=== PATIENT | female | born 1935 | race Caucasian/White ===

== ENCOUNTER → 2016-06-28 | Outpatient (CLI) | payer OTHER ==
[~2016-06-28] MED LIST: AMLO-114 PO; ATEN-173 PO; CALCTAB5 PO; DOXY100C76 PO; HYDR-5688 PO; INDA1TAB3 PO; LOPE2TAB84 PO; LOPELIQ6 PO; LOSA1TAB38 PO; MECL1TAB40 PO; MOME50SP5; TRIA1SPR4
[2016-06-28 17:52] LABS: BASO % 0.6 %; BASO ABS # 0.03 K/uL (0-0.2); COMPLETE YES; EOS % 2.3 %; HEMATOCRIT 36.7 % (37-47); IG% 0.2 %; LYMPH ABS # 1.66 K/uL (1.2-3.4); MEAN CELL VOLUME 90.4 fL (80-100); MEAN CORPUSCULAR HEMOGLOBIN 29.6 pg (25-34); MEAN CORPUSCULAR HGB CONC 32.7 g/dl (32-36); MEAN PLATELET VOLUME 10.7 fL (7.4-10.4); MONO % 8.4 %; NEUT % 53.5 %; PLATELET COUNT 184 K/uL (130-400); RED BLOOD COUNT 4.06 M/uL (4.2-5.4); WHITE BLOOD COUNT 4.74 K/uL (4.8-10.8)
[2016-06-28 18:26] LABS: ALT/SGPT 29 U/L (12-78); AST/SGOT 21 U/L (15-37); BLOOD UREA NITROGEN 19 mg/dl (7-18); BUN/CREATININE RATIO 28.8 (10-20); CALCIUM 8.9 mg/dl (8.5-10.1); CARBON DIOXIDE 31 mmol/L (21-32); CHLORIDE 103 mmol/L (98-107); CREATININE 0.67 mg/dl (0.60-1.20); GLUCOSE 108 mg/dl (70-99); POTASSIUM 3.2 mmol/L (3.5-5.1); SODIUM 143 mmol/L (136-145)
[2016-06-28 18:37] LABS: ALB/GLOB RATIO 1.2 (0.9-2); ALKALINE PHOSPHATASE 53 U/L (45-117); CHOLESTEROL 195 mg/dl (0-200); CHOLESTEROL/HDL RATIO 3.6; HDL CHOLESTEROL 54 mg/dl; LDL CHOLESTEROL CALCULATED 92 mg/dl; THYROID STIMULATING HORMONE 0.756 uIu/ml (0.300-4.500); TRIGLYCERIDES 247 mg/dl (0-150); VERY LOW DENSITY LIPOPROT CALC 49 mg/dl
== END | disposition home or self-care (01) ==
LOC: C.LAB 16:14
PROVIDERS: ATTEND Internal Medicine Geriatric Medicine
DX: I10 Essential (primary) hypertension (principal); M19.90 Unspecified osteoarthritis, unspecified site; E78.5 Hyperlipidemia, unspecified; E04.2 Nontoxic multinodular goiter; E87.6 Hypokalemia; M81.0 Age-related osteoporosis without current pathological fracture

== ENCOUNTER → 2016-07-24 | Outpatient (CLI) | payer OTHER ==
[2016-07-24 13:22] LABS: BLOOD UREA NITROGEN 18 mg/dl (7-18); CALCIUM 9.2 mg/dl (8.5-10.1); CARBON DIOXIDE 26 mmol/L (21-32); CHLORIDE 107 mmol/L (98-107); CREATININE 0.75 mg/dl (0.60-1.20); GLUCOSE 104 mg/dl (70-99); SODIUM 143 mmol/L (136-145)
== END | disposition home or self-care (01) ==
LOC: C.LABPBG 11:00
PROVIDERS: ATTEND Internal Medicine Geriatric Medicine
DX: E87.6 Hypokalemia (principal)

== ENCOUNTER → 2016-09-12 | Outpatient (CLI) | payer OTHER ==
[2016-09-12 17:53] LABS: BLOOD UREA NITROGEN 23 mg/dl (7-18); BUN/CREATININE RATIO 30.4 (10-20); CALCIUM 9.1 mg/dl (8.5-10.1); CARBON DIOXIDE 31 mmol/L (21-32); CHLORIDE 107 mmol/L (98-107); CREATININE 0.76 mg/dl (0.60-1.20); GLUCOSE 103 mg/dl (70-99); POTASSIUM 3.4 mmol/L (3.5-5.1); SODIUM 144 mmol/L (136-145)
== END | disposition home or self-care (01) ==
LOC: C.LABPBG 11:16
PROVIDERS: ATTEND Internal Medicine Geriatric Medicine
DX: I10 Essential (primary) hypertension (principal)

== ENCOUNTER → 2016-10-04 | Outpatient (CLI) | payer OTHER ==
[2016-10-04 13:16] LABS: CALCIUM 9.4 mg/dl (8.5-10.1)
[2016-10-04 13:18] LABS: BLOOD UREA NITROGEN 16 mg/dl (7-18); BUN/CREATININE RATIO 20.3 (10-20); CARBON DIOXIDE 28 mmol/L (21-32); CHLORIDE 103 mmol/L (98-107); CREATININE 0.78 mg/dl (0.60-1.20); GLUCOSE 89 mg/dl (70-99); POTASSIUM 3.1 mmol/L (3.5-5.1); SODIUM 142 mmol/L (136-145)
== END | disposition home or self-care (01) ==
LOC: C.LABPBG 09:21
PROVIDERS: ATTEND Internal Medicine Geriatric Medicine
DX: E87.6 Hypokalemia (principal)

== ENCOUNTER → 2016-10-23 | Outpatient (CLI) | payer OTHER ==
[2016-10-23 17:45] LABS: BLOOD UREA NITROGEN 22 mg/dl (7-18); BUN/CREATININE RATIO 33.2 (10-20); CALCIUM 8.7 mg/dl (8.5-10.1); CARBON DIOXIDE 28 mmol/L (21-32); CHLORIDE 108 mmol/L (98-107); CREATININE 0.67 mg/dl (0.60-1.20); GLUCOSE 91 mg/dl (70-99); POTASSIUM 3.6 mmol/L (3.5-5.1); SODIUM 143 mmol/L (136-145)
== END | disposition home or self-care (01) ==
LOC: C.LABPBG 11:56
PROVIDERS: ATTEND Internal Medicine Geriatric Medicine
DX: E87.6 Hypokalemia (principal)

== ENCOUNTER → 2016-10-29 | Outpatient (CLI) | payer OTHER ==
[2016-10-29 17:35] LABS: URINE APPEARANCE CLEAR (CLEAR); URINE BILIRUBIN NEG (NEG); URINE COLOR YELLOW; URINE NITRITE NEG (NEG); URINE PH 6.5 (4.5-7.5); UROBILINOGEN NEG (NEG)
[2016-10-29 17:37] LABS: MANUAL MICROSCOPIC REQUIRED? NO; REVIEW REQ? NO
[2016-10-29 17:37] LABS: BLOOD UREA NITROGEN 16 mg/dl (7-18); BUN/CREATININE RATIO 22.6 (10-20); CALCIUM 8.9 mg/dl (8.5-10.1); CARBON DIOXIDE 31 mmol/L (21-32); CHLORIDE 107 mmol/L (98-107); CREATININE 0.72 mg/dl (0.60-1.20); GLUCOSE 99 mg/dl (70-99); PHOSPHORUS 2.9 mg/dl (2.5-4.9); POTASSIUM 3.3 mmol/L (3.5-5.1); SODIUM 144 mmol/L (136-145)
[2016-10-29 17:53] LABS: URINE TOTAL PROTEIN < 5.0 mg/dl (0-11.9)
== END | disposition home or self-care (01) ==
LOC: C.LABPBG 14:59
PROVIDERS: ATTEND Internal Medicine Nephrology
DX: I10 Essential (primary) hypertension (principal)

== ENCOUNTER → 2016-11-18 | Outpatient (CLI) | payer OTHER ==
--- NOTE | 2016-11-18 16:23 | DIAGNOSTIC IMAGING REPORT ---
ULTRASOUND RIGHT VENOUS DOPP LOWER EXT UNILAT CLINICAL HISTORY: Right leg edema COMPARISON STUDY: 05/29/2015 FINDINGS: Real-time and color flow Doppler imaging were performed. Flow was seen within the femoral, popliteal and calf veins with no intraluminal thrombus demonstrated. The saphenous vein is patent. IMPRESSION: No evidence of right lower extremity DVT Electronically signed by: Moisés Stinson M.D. 11/18/2016 4:21 PM Dictated Date/Time: 11/18/2016 4:21 PM
== END | disposition home or self-care (01) ==
LOC: C.ULTR 15:27
PROVIDERS: ATTEND Physician Assistant Medical
DX: R60.0 Localized edema (principal)

== ENCOUNTER 2016-11-28 17:57 | Emergency (ER) | payer OTHER ==
[~2016-11-28] VITALS: Ht 154.9 cm; Wt 67.0 kg
[~2016-11-28 17:57] MED LIST changes: -AMLO-114 PO; -HYDR-5688 PO; -LOPE2TAB84 PO; -LOSA1TAB38 PO; -TRIA1SPR4
[2016-11-28 18:00] VITALS: BP 198/89; PULSE 71; TEMP 36.7; O2SAT 96; Ht 154.9 cm; Wt 67.0 kg
[2016-11-28] MEDS ORDERED: AMLO-114 PO (18:29)
[2016-11-28] MEDS ORDERED: CALCTAB5 PO (18:29)
[2016-11-28] MEDS ORDERED: LOSA1TAB38 PO (18:29)
[2016-11-28] MEDS ORDERED: TRIA1SPR4 (18:29)
[2016-11-28] MEDS ORDERED: LOPE2TAB84 PO (18:30)
--- NOTE | 2016-11-28 18:50 | DIAGNOSTIC IMAGING REPORT ---
RIGHT WRIST 4 VIEWS CLINICAL HISTORY: Right wrist pain. No history of trauma. FINDINGS: 4 views of the right wrist are obtained. No prior studies are available for comparison at the time of dictation. The skeletal structures are osteopenic. No fracture is seen. There is advanced degenerative narrowing at the radiocarpal articulation with bony sclerosis and subchondral cyst formation seen within the distal radius. Advanced arthritic change is seen throughout the intercarpal joints as well as the carpometacarpal joints. This is greatest at the first carpometacarpal articulation where there is bony overgrowth and subluxation. Diffuse degenerative cystic change is seen throughout the wrist. There is collapse of the distal carpal row. Bony overgrowth is noted along the ulnar styloid. Chondrocalcinosis is present within the triangular fibrocartilage. Some tissue edema is present around the wrist. IMPRESSION: 1. Soft tissue swelling with no acute bony abnormality seen in the right wrist. 2. Osteopenia and advanced arthritic change as above. Electronically signed by: Abhinav Josue M.D. 11/28/2016 6:48 PM Dictated Date/Time: 11/28/2016 6:46 PM
--- NOTE | 2016-11-28 19:02 | EMERGENCY ROOM VISIT NOTE ---
ED Visit Note First contact with patient: 18:18 The patient was seen and examined with Wisam Jiang PA-C. I agree with the history, physical and findings. Please see the note for disposition and details.
[2016-11-28] MEDS ORDERED: HYDR-5688 PO (19:08)
[2016-11-28] MEDS ORDERED: HYDROCODONE/ACETAMOPHEN 5/325MG TAB PO ONE (19:30)
--- NOTE | 2016-11-29 14:28 | EMERGENCY ROOM VISIT NOTE ---
ED Visit Note First contact with patient: 18:18 Chief Complaint: Right wrist and hand pain. History of Present Illness: Ms. Abreu is a 81-year-old white female who ambulates into the ED accompanied by her complaining of right wrist and hand pain. Patient denies any recent direct trauma or previous significant injuries or surgeries. She does report she has moderate to severe arthritis. Patient reports her pain started yesterday after cleaning house. Her also reports that she has been doing a lot of lifting of grandchildren recently. Currently patient places the majority of her discomfort over the right first metacarpal and at the metacarpal carpal joint and the first MCP joint. She describes her discomfort as a deep achy sensation. She rates her discomfort 8/10. Her pain is nonradiating. Her pain worsens with all movements and palpation of the carpometacarpal joint and MCP joint. She has not identified any alleviating factors related to the pain. She has not taken any medications for pain but has been wearing a previous splint that was given to her. She denies any associated symptoms including neck pain, shoulder pain, arm pain, elbow pain, proximal forearm pain, hand weakness/numbness/tingling, fevers, chills, sweats, skin eruptions. Review of Systems: As noted above in history of present illness. Past Medical History: GERD, Mnire's disease, hypertension, hiatal hernia, irritable bowel syndrome, osteoporosis, status post appendectomy, total hysterectomy and unspecified sinus surgeries. Current Medications: Medications Dose Route/Sig Max Daily Dose Days Date Category Dose Instructions [place] 5MG/325MG (Acetaminophen/Hydrocodone Bitart) Tab 1-2 Tablet PO Q6H PRN 11/28/16 Rx For Initial Treatment Anti-Diarrheal (Loperamide Hcl) 2 Mg Tab 2 Mg PO DIRECTED PRN 11/28/16 Reported Nasacort Allergy 24Hr (Triamcinolone Acetonide (Nasal) 55 Mcg/Act Spr 1 [place] NA DAILY 11/28/16 Reported Norvasc (Amlodipine Besylate) 10 Mg Tab 10 Mg PO DAILY 11/28/16 Reported Cozaar (Losartan Potassium) 100 Mg Tab 100 Mg PO DAILY 11/28/16 Reported Caltrate 600 (Calcium Carbonate) 1,500 Mg Tab 1,500 Mg PO QAM 11/28/16 Reported Meclizine HCl 12.5 Mg Tab 1 Tab PO DAILY 03/31/15 Reported Lozol (Indapamide) 1.25 Mg Tab 0.5 Tab PO BID 90 03/31/15 Reported Tenormin (Atenolol) 25 Mg Tab 25 Mg PO BID 03/31/15 Reported Allergies to Medications: NSAIDs, sulfa. Social History: Patient is not currently employed; she lives with her and feels safe in her home environment; she denies tobacco use. Physical Examination: Vital Signs: Date Time Temp Pulse Resp B/P (MAP) Pulse Ox O2 Delivery O2 Flow Rate FiO2 11/28/16 18:00 36.7 71 18 198/89 96 Room Air GENERAL: 81-year-old female in moderate distress due to pain, nontoxic-appearing , afebrile and hemodynamically stable. NEUROLOGICAL: Awake, alert and oriented to person, place and time. Answering questions appropriately and following commands. Normal gait. SKIN: Warm, dry and pink. No soft tissue eruptions or trauma noted. RIGHT UPPER EXTREMITY: No gross bony deformity. No tenderness in the shoulder, upper arm, elbow or proximal forearm. Moderate to severe tenderness over the carpometacarpal joint, first metacarpal and the first MCP joint. I do not appreciate any bony deformity or crepitus. There is no localized swelling or erythema. With the stump stabilize she does have full range of motion in flexion and extension of the MCP and interphalangeal joint but has difficulty doing any movement at the carpometacarpal joint. Throughout the thumb the skin was warm and pink and capillary refill is brisk. She is able to distinguish light sensations through all dermatomes of the thumb ED Course: Patient is assessed as noted above. Patient's medication list was reviewed. Right Wrist X-Rays: Were read by myself and the radiologist showing no acute fractures or dislocations. Advanced arthritic changes throughout the hand and wrist. Patient was given 5/325 mg [place] tablet by mouth for pain. Patient was placed in a thumb spica splint. Patient's case was reviewed with Dr. Clinton; he independently assessed the patient we agreed on diagnostic approach, treatment, disposition and plan. Patient was educated about today's findings and instructed on her treatment plan ; she verbalized understanding and agreement with this plan. Clinical Impression: Right wrist pain. Decision-Making: Initially my differential diagnosis I considered fracture, dislocation, arthritis, tendinitis and other causes. Disposition: Patient discharged home in stable condition accompanied by her ; prior to departure she was reassessed and subjectively reported she was feeling better and rated her discomfort 5/10. Plan: Comfort measures were discussed with the patient including rest, ice, splint use and a sliding pain scale of acetaminophen and [place]. Appropriate precautions were discussed with the patient these narcotics and her name was checked on the state database no red flags were noted. A she was encouraged to follow-up with rn documentation specialist if no better in 3- 4 days. Patient was encouraged return the ED for worsening/uncontrolled pain, uncontrolled swelling, skin redness/warmth, fevers, hand/finger weakness/ numbness/tingling or any new/concerning symptoms.
== END 2016-11-28 19:33 | disposition home or self-care (01) ==
LOC: C.EDB 17:58 → C.EDD 19:33
DX: M25.531 Pain in right wrist (principal); I10 Essential (primary) hypertension; K21.9 Gastro-esophageal reflux disease without esophagitis; K58.9 Irritable bowel syndrome, unspecified; M81.0 Age-related osteoporosis without current pathological fracture; Z79.899 Other long term (current) drug therapy; Z90.710 Acquired absence of both cervix and uterus; Z98.890 Other specified postprocedural states; Z88.2 Allergy status to sulfonamides; Z88.8 Allergy status to other drugs, medicaments and biological substances

== ENCOUNTER → 2016-12-19 | Outpatient (CLI) | payer OTHER ==
[~2016-12-19] MED LIST changes: +AMLO-114 PO; -DOXY100C76 PO; +HYDR-5688 PO; +LOPE2TAB84 PO; -LOPELIQ6 PO; +LOSA1TAB38 PO; -MOME50SP5; +TRIA1SPR4
[2016-12-19 17:25] LABS: BLOOD UREA NITROGEN 19 mg/dl (7-18); CALCIUM 8.9 mg/dl (8.5-10.1); CARBON DIOXIDE 28 mmol/L (21-32); CHLORIDE 107 mmol/L (98-107); CREATININE 0.72 mg/dl (0.60-1.20); GLUCOSE 94 mg/dl (70-99); PHOSPHORUS 3.3 mg/dl (2.5-4.9); POTASSIUM 3.7 mmol/L (3.5-5.1); SODIUM 141 mmol/L (136-145)
== END | disposition home or self-care (01) ==
LOC: C.LABPBG 14:54
PROVIDERS: ATTEND Internal Medicine Geriatric Medicine
DX: I10 Essential (primary) hypertension (principal)

== ENCOUNTER → 2017-02-14 | Outpatient (CLI) | payer OTHER ==
[2017-02-14 12:21] LABS: BASO % 0.7 %; BASO ABS # 0.05 K/uL (0-0.2); COMPLETE YES; EOS % 1.3 %; HEMATOCRIT 38.4 % (37-47); IG% 0.3 %; LYMPH % 26.9 %; LYMPH ABS # 1.84 K/uL (1.2-3.4); MEAN CELL VOLUME 90.8 fL (80-100); MEAN CORPUSCULAR HEMOGLOBIN 29.3 pg (25-34); MEAN CORPUSCULAR HGB CONC 32.3 g/dl (32-36); MEAN PLATELET VOLUME 10.9 fL (7.4-10.4); MONO % 10.4 %; NEUT % 60.4 %; PLATELET COUNT 186 K/uL (130-400); RED BLOOD COUNT 4.23 M/uL (4.2-5.4); WHITE BLOOD COUNT 6.84 K/uL (4.8-10.8)
[2017-02-14 13:13] LABS: ALT/SGPT 23 U/L (12-78); AST/SGOT 21 U/L (15-37); BLOOD UREA NITROGEN 20 mg/dl (7-18); BUN/CREATININE RATIO 25.8 (10-20); CALCIUM 9.4 mg/dl (8.5-10.1); CARBON DIOXIDE 31 mmol/L (21-32); CHLORIDE 104 mmol/L (98-107); CHOLESTEROL 204 mg/dl (0-200); CREATININE 0.77 mg/dl (0.60-1.20); GLUCOSE 93 mg/dl (70-99); POTASSIUM 3.6 mmol/L (3.5-5.1); SODIUM 139 mmol/L (136-145); TRIGLYCERIDES 130 mg/dl (0-150); VERY LOW DENSITY LIPOPROT CALC 26 mg/dl
[2017-02-14 13:23] LABS: ALB/GLOB RATIO 1.1 (0.9-2); ALKALINE PHOSPHATASE 57 U/L (45-117); CHOLESTEROL/HDL RATIO 3.9; HDL CHOLESTEROL 52 mg/dl; LDL CHOLESTEROL CALCULATED 126 mg/dl
--- NOTE | 2017-02-24 13:06 | CODING QUERY MEDICAL NECESSITY ---
SUPPORTING DIAGNOSIS NEEDED A supporting diagnosis is required for the test/procedure performed on this patient in order for us to be reimbursed by the patient's insurance. Please provide a supporting diagnosis for the following test/procedure listed below next to the test name along with your signature. *If there is no additional diagnosis for this patient that would support the following test/procedure please document that below next to the test/procedure. Test(s)/Procedure(s) that require a supporting diagnosis: * VITAMIN D, 25-HYDROXY DIAGNOSIS: Provider Signature: Date: Thank you Joyce Kim NOT[facility] Information Management Once completed, please kindly fax back to [phone] For questions please call [phone]
== END | disposition home or self-care (01) ==
LOC: C.LABPBG 09:09
PROVIDERS: ATTEND Internal Medicine Geriatric Medicine
DX: I10 Essential (primary) hypertension (principal); M19.90 Unspecified osteoarthritis, unspecified site; E04.2 Nontoxic multinodular goiter; E87.6 Hypokalemia; R40.0 Somnolence; E55.9 Vitamin D deficiency, unspecified

== ENCOUNTER → 2017-03-13 | Outpatient (CLI) | payer OTHER ==
[2017-03-13 17:48] LABS: BLOOD UREA NITROGEN 18 mg/dl (7-18); BUN/CREATININE RATIO 22.4 (10-20); CALCIUM 9.9 mg/dl (8.5-10.1); CARBON DIOXIDE 31 mmol/L (21-32); CHLORIDE 100 mmol/L (98-107); CREATININE 0.78 mg/dl (0.60-1.20); GLUCOSE 75 mg/dl (70-99); MAGNESIUM 1.9 mg/dl (1.8-2.4); PHOSPHORUS 2.8 mg/dl (2.5-4.9); POTASSIUM 3.3 mmol/L (3.5-5.1); SODIUM 136 mmol/L (136-145)
== END | disposition home or self-care (01) ==
LOC: C.LABPBG 11:45
PROVIDERS: ATTEND Internal Medicine Nephrology
DX: I10 Essential (primary) hypertension (principal)

== ENCOUNTER → 2017-03-26 | Outpatient (CLI) | payer OTHER ==
[~2017-03-26] MED LIST changes: +OPTIRAY 320 IV PRN
--- NOTE | 2017-03-26 10:15 | DIAGNOSTIC IMAGING REPORT ---
CT ANGIO ABDOMEN WITH CONTRAST CT DOSE: 408.78 mGy.cm CLINICAL HISTORY: Persistent hypertension. Possible renal artery stenosis. TECHNIQUE: Helical images were acquired in the transverse plane. The patient was scanned in a dynamic helical fashion during intravenous administration of 93 cc of Optiray 320. MIP imaging was performed. A dose lowering technique was utilized adhering to the principles of ALARA. COMPARISON STUDY: Abdominal MRI dated 03/04/2006 tagged RBC study performed March 2006 FINDINGS: The visualized portions lung bases reveal dependent atelectatic changes. There are subtle hepatic masses, which are felt to correspond to the previous described hepatic hemangiomas. The gallbladder is surgically absent. The common bile duct measures 9 mm. No splenic masses are visualized. No pancreatic masses are visualized. There is no pathologic upper abdominal lymphadenopathy. There is a small hiatal hernia. There are postsurgical changes present within the lumbar spine. No renal masses are visualized arterial phase study. There is no evidence of hemodynamic significant celiac or superior mesenteric artery stenosis. Inferior mesenteric artery is patent. There is a 30% diameter stenosis of the proximal right renal artery. There is no evidence of significant left renal artery stenosis. 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 IMPRESSION: 1. 30% diameter stenosis of the proximal right renal artery 2. No evidence of significant left renal artery stenosis 3. 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 Hepatic masses, consistent with the patient's known hemangiomas 5. No evidence of superior mesenteric or celiac artery stenosis Electronically signed by: Moisés Stinson M.D. 03/26/2017 10:13 AM Dictated Date/Time: 03/26/2017 10:02 AM
== END | disposition home or self-care (01) ==
LOC: C.CTS 09:17
PROVIDERS: ATTEND Internal Medicine Nephrology
DX: I10 Essential (primary) hypertension (principal); I70.1 Atherosclerosis of renal artery; I71.4 Abdominal aortic aneurysm, without rupture; K76.89 Other specified diseases of liver

== ENCOUNTER → 2017-05-22 | Outpatient (CLI) | payer OTHER ==
[~2017-05-22] MED LIST changes: -OPTIRAY 320 IV PRN
--- NOTE | 2017-05-22 14:28 | MAMMOGRAPHY REPORT ---
BILATERAL DIGITAL SCREENING MAMMOGRAM WITH CAD: 05/22/2017 CLINICAL HISTORY: Routine screening. TECHNIQUE: Current study was also evaluated with a Computer Aided Detection (CAD) system. Bilateral CC and MLO views were obtained. COMPARISON: Comparison is made to exams dated: 05/21/2016 mammogram, 05/19/2015 mammogram, 4 mammogram, 05/05/2013 mammogram, 04/30/2013 mammogram, and 04/24/2012 mammogram - [facility] [address] BREAST COMPOSITION: There are scattered areas of fibroglandular density in both breasts. FINDINGS: No suspicious masses, calcifications, or areas of architectural distortion are noted in ei ther breast. There has been no significant interval change compared to prior exams. Scattered bilater al benign-appearing calcifications are not significantly changed. Architectural distortion in the le ft 12:00 breast is stable dating back to at least the 2007 exam and consistent with postsurgical kirk ges. IMPRESSION: ACR BI-RADS CATEGORY 2: BENIGN There is no mammographic evidence of malignancy. A 1 year screening mammogram is recommended. The pa tient will receive written notification of the results. Approximately 10% of breast cancers are not detected with mammography. A negative mammographic report should not delay biopsy if a clinically suggestive mass is present. Roma Sharma M.D. /:05/22/2017 14:13:08 Powder Shoveler: Gabino TRENT(R)(M), [facility] letter sent: Normal 1/2 BI-RADS Code: ACR BI-RADS Category 2: Benign
== END | disposition home or self-care (01) ==
LOC: C.MAMM 11:49
PROVIDERS: ATTEND Internal Medicine Geriatric Medicine
DX: Z12.31 Encounter for screening mammogram for malignant neoplasm of breast (principal)

== ENCOUNTER → 2017-06-17 | Outpatient (CLI) | payer OTHER ==
[~2017-06-17] MED LIST changes: -HYDR-5688 PO
[2017-06-17 17:41] LABS: ALBUMIN 3.5 gm/dl (3.4-5.0); BLOOD UREA NITROGEN 24 mg/dl (7-18); CALCIUM 9.1 mg/dl (8.5-10.1); CARBON DIOXIDE 31 mmol/L (21-32); CREATININE 0.78 mg/dl (0.60-1.20); GLUCOSE 110 mg/dl (70-99); POTASSIUM 2.9 mmol/L (3.5-5.1); SODIUM 137 mmol/L (136-145)
[2017-06-17 17:42] LABS: PHOSPHORUS 2.7 mg/dl (2.5-4.9)
== END | disposition home or self-care (01) ==
LOC: C.LABPBG 13:29
PROVIDERS: ATTEND Internal Medicine Nephrology
DX: I10 Essential (primary) hypertension (principal)

== ENCOUNTER → 2017-06-24 | Outpatient (CLI) | payer OTHER ==
[2017-06-24 17:40] LABS: ALBUMIN 3.4 gm/dl (3.4-5.0); BLOOD UREA NITROGEN 18 mg/dl (7-18); CARBON DIOXIDE 29 mmol/L (21-32); CREATININE 0.62 mg/dl (0.60-1.20); GLUCOSE 97 mg/dl (70-99); POTASSIUM 3.6 mmol/L (3.5-5.1); SODIUM 138 mmol/L (136-145)
== END | disposition home or self-care (01) ==
LOC: C.LABPBG 13:59
PROVIDERS: ATTEND Internal Medicine Nephrology
DX: E87.6 Hypokalemia (principal)

== ENCOUNTER → 2017-08-22 | Outpatient (CLI) | payer OTHER ==
[2017-08-22 17:40] LABS: BLOOD UREA NITROGEN 15 mg/dl (7-18); CALCIUM 9.3 mg/dl (8.5-10.1); CARBON DIOXIDE 29 mmol/L (21-32); GLUCOSE 86 mg/dl (70-99); POTASSIUM 3.4 mmol/L (3.5-5.1); SODIUM 136 mmol/L (136-145)
== END | disposition home or self-care (01) ==
LOC: C.LABPBG 11:41
PROVIDERS: ATTEND Internal Medicine Geriatric Medicine
DX: I10 Essential (primary) hypertension (principal)

== ENCOUNTER → 2017-09-23 | Outpatient (CLI) | payer OTHER ==
[2017-09-23 17:22] LABS: ALBUMIN 3.6 gm/dl (3.4-5.0); BLOOD UREA NITROGEN 13 mg/dl (7-18); CALCIUM 9.2 mg/dl (8.5-10.1); CARBON DIOXIDE 29 mmol/L (21-32); CREATININE 0.78 mg/dl (0.60-1.20); GLUCOSE 116 mg/dl (70-99); PHOSPHORUS 3.1 mg/dl (2.5-4.9); POTASSIUM 3.1 mmol/L (3.5-5.1); SODIUM 140 mmol/L (136-145)
== END | disposition home or self-care (01) ==
LOC: C.LABPBG 11:32
PROVIDERS: ATTEND Internal Medicine Nephrology
DX: I10 Essential (primary) hypertension (principal)

== ENCOUNTER → 2017-10-21 | Outpatient (CLI) | payer OTHER ==
[2017-10-21 17:34] LABS: ALBUMIN 3.5 gm/dl (3.4-5.0); BLOOD UREA NITROGEN 21 mg/dl (7-18); CARBON DIOXIDE 28 mmol/L (21-32); CREATININE 0.81 mg/dl (0.60-1.20); GLUCOSE 123 mg/dl (70-99); POTASSIUM 3.1 mmol/L (3.5-5.1); SODIUM 139 mmol/L (136-145)
[2017-10-21 17:35] LABS: PHOSPHORUS 2.8 mg/dl (2.5-4.9)
== END | disposition home or self-care (01) ==
LOC: C.LABPBG 12:53
PROVIDERS: ATTEND Internal Medicine Nephrology
DX: E87.6 Hypokalemia (principal)

== ENCOUNTER → 2017-10-27 | Outpatient (CLI) | payer OTHER ==
--- NOTE | 2017-10-27 15:02 | DIAGNOSTIC IMAGING REPORT ---
VIDEO SWALLOW STUDY CLINICAL HISTORY: Dysphagia. COMPARISON STUDY: No priors. Fluoroscopy time: 2.4 minutes. FINDINGS: Fluoroscopic guidance is provided to the Department of Speech Pathology in performing a video swallow study. The patient consumed barium-impregnated pudding, cracker with paste, nectar thick liquid, and thin barium while the swallowing mechanism was observed in real-time. No penetration or aspiration was seen with the sampled textures. Several swallowing attempts were required to clear the more solid textures. IMPRESSION: 1. No penetration or aspiration was seen with any of the sampled textures. 2. See dedicated speech pathology report for detailed findings and recommendations. Dictated: 10/27/2017 2:10 PM Transcribed: 10/27/2017 3:02 PM JOHAN_Yolanda Electronically signed by: Abhinav Josue M.D. 10/28/2017 7:08 AM Dictated Date/Time: 10/27/2017 2:10 PM
--- NOTE | 2017-10-27 15:15 | SWALLOWING EVALUATION ---
REFERRING SPEECH PATHOLOGIST: n/a HISTORY: This 82 year-old female was referred for a VFSS at [facility] in order to address c/o persistent globus sensation that leaves her feeling SOB at times. The patient has a PMH significant for multiple EGDs with dilatation, GERD, hiatal hernia, Meniere's disease, IBS, hypertension, sinusitis and pneumonia. Currently the patient's diet level is regular. PROCEDURE: The patient was seen in the Radiology Department of [facility] for the VFSS. Cursory examination of the oral cavity revealed adequate dentition. Movement of the articulators was WNL. The patient was seated on a stool and was viewed in both the Anterior-Posterior (A-P) and Lateral planes. Volitional phonation exercises completed in the A-P plane revealed bilateral vocal fold movement and vocal intensity within functional limits. In the lateral plane, the patient was given the following boluses: 1 tsp. thin liquid barium x 2, single swallow thin liquid barium self-presented from a cup, sequential swallows of thin liquid barium self-presented from a straw, 1 tsp. nectar-thick liquid barium, single swallow nectar-thick liquid barium self-presented from a cup, 1 tsp. barium pudding, and 1 club cracker with barium pudding. The patient was then repositioned into the A-P plane and given single swallow thin liquid barium self-presented from a cup. RESULTS: Oral Stage: Labial seal, lingual control for oral bolus hold, mastication, and lingual movement for bolus transfer were timely and complete. The patient held the majority of a solid bolus intraorally and swallowed it in piecemeal fashion until there was no oral residual. The pharyngeal stage of the swallow was initiated when the bolus head filled the valleculae. Mild oral-stage dysphagia with no functional impairment. Pharyngeal Stage: Velar elevation complete. Partial laryngeal elevation. Anterior hyoid excursion, epiglottic inversion and laryngeal vestibular closure complete. Present pharyngeal stripping wave and complete pharyngeal contraction. Distention and duration of PES opening was complete. Tongue base retraction complete and there was no pharyngeal bolus retention. No aspiration during this study. There was flash penetration with thin liquids during sequential swallows. The bolus remained above the vocal folds at all times. Mild pharyngeal-stage dysphagia without airway compromise. Esophageal Stage: Upon returning the patient to the AP plane to screen the esophageal stage there was evidence of barium contrast filling the proximal esophagus. Liquid wash was given to help clear the retained material, but this was only minimally effective. The majority of the liquid stayed in the proximal esophagus and there was retrograde motion (bobbing) of liquid below the PES. SUMMARY/RECOMMENDATIONS: This patient presents with mild oral-pharyngeal dysphagia that has no functional effect on safety of the swallow and may be considered WNL for patient age. However, the patient presents with s/s significant esophageal dysfunction. The following is recommended: 1. SLIPPERY DIET: choose moist, loose, slippery soft foods; avoid dry, doughy, thick foods; use condiments liberally to make foods slippery 2. Compensatory Strategies: alternate solids and liquids during meals; eat and drink while FULLY UPRIGHT and remain upright 30 minutes after meals; keep head of bed elevated AT LEAST 30-degrees at ALL times (even sleep) 3. Consideration of f/u with substance addiction coordinator re: disordered esophageal motility; patient may need a Barium Swallow Study to assess esophageal function A summary of the results and recommendations was discussed with the patient immediately following the study and information about a slippery diet was provided to the patient in writing. She is anticipating f/u with the referring physician. Thank you for referral of this patient. Please contact me at if any additional information is needed.
== END | disposition home or self-care (01) ==
LOC: C.RAD 12:54
PROVIDERS: ATTEND Internal Medicine Geriatric Medicine
DX: R13.10 Dysphagia, unspecified (principal)

== ENCOUNTER 2023-01-29 15:46 | Inpatient (IN) ==
[2023-01-29] MEDS ORDERED: ONDANSETRON INJ 2 MG/ML 2 ML VIAL IV STA (15:51)
--- NOTE | 2023-01-29 15:51 | ED Triage Note ---
Date of Service January 29, 2023 History of Present Illness This patient was briefly evaluated while in triage. An abbreviated physical exam was performed. This patient is a 87-year-old Female who presents to the ED for evaluation of nausea and vomiting worsening over weeks. Hx of liver cancer, with recent diagnosis. No current treatment. Physical Exam Limited Triage Exam: VITALS: Vitals are noted on the nurse's note and reviewed by myself. Vital si gns stable. GENERAL: Elderly, white female, who is mildly ill appearing. She is holding an emesis bucket. HEART: Regular rate and rhythm without murmurs gallops or rubs. LUNGS: Clear to auscultation bilaterally without wheezes, rales or rhonchi. No retractions or accessory muscle use. NEURO: Patient was alert and oriented to person place and time. CN II through XII grossly intact. Initial orders for labs and / or imaging were placed and patient was placed in the waiting area until a bed is available. Please see further documentation for the full ED course. 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
[2023-01-29] MEDS ORDERED: SODIUM CHLORIDE 0.9% 500 ML IV SCH (16:00)
[2023-01-29 17:05] LABS: Basophils # (auto) 0.06 K/uL (0.00-0.20); Basophils % (auto) 0.5 %; Eosinophils # (auto) 0.08 K/uL (0.00-0.50); Eosinophils % (auto) 0.7 %; Hematocrit (blood only) 39.6 % (37.0-47.0); Immature Granulocytes % (auto) 0.8 %; Lymphocytes # (auto) 0.98 K/uL (1.20-3.40); Lymphocytes % (auto) 8.1 %; Mean Corpuscular Hemoglobin 27.8 pg (25.0-34.0); Mean Corpuscular Hgb Conc 32.8 g/dL (32.0-36.0); Mean Corpuscular Volume 84.6 fL (80.0-100.0); Mean Platelet Volume 11.3 fL (9.4-12.4); Monocytes % (auto) 6.6 %; Neutrophils # (auto) 10.07 K/uL (1.40-6.50); Neutrophils % (auto) 83.3 %; Platelet Count 223 K/uL (130-400); RDW Coefficient of Variation 14.6 % (11.5-14.5); RDW Standard Deviation 44.9 fL (36.4-46.3); Red Blood Count 4.68 M/uL (4.20-5.40); White Blood Count 12.09 K/ul (4.8-10.8)
--- NOTE | 2023-01-29 17:35 | CT Scan Report ---
ABDOMEN AND PELVIS CT WITHOUT CONTRAST CT DOSE: 549.30 mGy.cm HISTORY: abd pain. n/v. hx liver CA TECHNIQUE: Multiaxial CT images of the abdomen and pelvis were performed without contrast. A dose lo wering technique was utilized adhering to the principles of ALARA. COMPARISON STUDY: Abdomen and pelvis CT 02/28/2019. FINDINGS: Left basilar linear densities favor subsegmental atelectasis or scarring. There is a small calcified pleural plaque at the left lung base. No pneumoperitoneum. No pneumatosis. No suspicious ly tic or blastic osseous lesions. L2-S1 posterior decompression and fusion with pedicle screws and rods . Hardware appears intact. L1 vertebroplasty is noted. Bone stimulator leads are seen within the lumb ar region. There is a small hiatus hernia. Multiple hypodense lesions are seen scattered throughout t he liver. This is most pronounced within the right hepatic lobe. The inferior aspect of the right hep atic lobe is almost entirely replaced by a large hypodense area measuring 10 cm. This likely correspo nds to the patient's history of underlying liver malignancy. The liver is enlarged measuring 20 cm in length. Prior cholecystectomy. Suboptimal evaluation of the abdominal structures due to the lack of intravenous contrast in the metallic artifact from the lumbar spine hardware. However, the unenhanced pancreas, spleen, adrenal glands, and kidneys are unremarkable. No hydronephrosis. No retroperitonea l lymphadenopathy. No pelvic lymphadenopathy. Trace pelvic free fluid. The bladder is unremarkable. T he uterus is surgically absent. Suboptimal evaluation for bowel pathology due to the lack of intraven ous and oral contrast. However, there is no definite bowel wall thickening or obstruction. Majority c olon is decompressed. Colonic diverticulosis. No evidence for acute diverticulitis. Prior appendectom y. IMPRESSION: 1. The liver is enlarged and contains multiple hypodense lesions. This is most pronounced within the right hepatic lobe. The inferior aspect of the right hepatic lobe is almost entirely replaced by a la rge hypodense area measuring 10 cm. This likely corresponds to the patient's history of underlying li matty malignancy. 2. No definite bowel wall thickening or obstruction. 3. Trace pelvic free fluid. 4. No hydronephrosis. 5. Colonic diverticulosis. No evidence for acute diverticulitis. 6. Additional findings as described above ACT 112: Negative or not required by law. Electronically signed by: Michael Henning M.D. 01/29/2023 5:32 PM
[2023-01-29] MEDS ORDERED: FAMOTIDINE 20MG IV PUSH 20 MG/5 ML SYR IV STA (17:39)
[2023-01-29] MEDS ORDERED: SODIUM CHLORIDE 0.9% 1000ML 1,000 ML IV ONE (17:39)
[2023-01-29 17:40] LABS: Alanine Aminotransferase 38 U/L (7-52); Albumin Level 4.3 gm/dl (3.4-5.0); Alkaline Phosphatase 188 U/L (34-104); Anion Gap 10 (3-11); Aspartate Aminotransferase 61 U/L (13-39); BUN Creatinine Ratio 37.2 (10-20); Bilirubin,Total 0.8 mg/dl (0.2-1.0); Blood Urea Nitrogen 29 mg/dl (6-23); Calcium 11.7 mg/dl (8.6-10.3); Carbon Dioxide 25 mmol/L (21-32); Chloride 100 mmol/L (98-107); Est GFR (African American) 80.3 ml/min; Est GFR (Non-African American) 69.3 ml/min; Globulin 4.3 gm/dl (2.5-4.0); Glucose 143 mg/dl (70-99(Fasting)); Sodium 135 mmol/L (136-145); Total Protein 8.6 gm/dl (6.0-8.3)
[2023-01-29 18:03] LABS: Bilirubin Direct 0.1 mg/dl (0-0.2); Lipase 27 U/L (11-82)
--- NOTE | 2023-01-29 18:23 | XRay Report ---
XR chest 1V portable HISTORY: weakness COMPARISON: Chest CT 08/28/2022. FINDINGS: Small left basilar linear densities consistent with subsegmental atelectasis or scarring. O therwise, lungs are clear. No pleural effusions. No pneumothorax. The heart is normal in size. L1 matty tebroplasty again noted. Lumbar spinal fusion hardware is partially visualized. Bone stimulator leads are noted. IMPRESSION: No acute process. ACT 112: Negative or not required by law. Electronically signed by: Michael Henning M.D. 01/29/2023 6:21 PM
--- NOTE | 2023-01-29 18:41 | Emergency Department Note ---
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, Hypercalcemia, Intractable nausea and vomiting, Dehydration ED Provider Note NAME: LEILA HALL AGE: 87 SEX: F ARRIVES VIA: Walk-In INFORMANT: Patient ED PROVIDER(S): Silver Sanchez MD CHIEF COMPLAINT: Liver cancer, nausea, vomiting PLAN: Disposition: Admit MEDICAL DECISION MAKING: The patient is a pleasant 87-year-old woman with a past medical history of cholangiocarcinoma where she is scheduled to begin radiation treatment next week who presents to the emergency department via walk-in, accompanied by family for intractable nausea and vomiting with poor oral intake worsening over the past week. The patient reports that she has had minimal oral intake due to her symptoms and has been losing weight. She reports experiencing constipation. She denies any fevers, chills, cough, congestion, chest pain, shortness of breath. Of note, the patient did arrive to emergency department during time of high vo lume, acuity and prolonged emergency department waiting times. Critical pathways initiated from triage. On my evaluation the patient fatigued appearing but no acute distress, afebrile with stable vital signs. She appears clinically dry. She has upper abdominal fullness with generalized abdominal discomfort without discrete tenderness. EKG without overt acute ischemia. CXR negative for acute cardiopulmonary process. WBC 12K, nonspecific. H/H and platelets within normal limits. Chemistry wi thout metabolic acidosis. Creatinine is normal however BUN is elevated at 29 with BUN/creatinine> 30 consistent with the patient's clinically dry appearance. Calcium is also elevated at 11.7 in the patient setting of the patient's dehydration and cholangiocarcinoma. AST 61 and alkaline phosphatase 188 both increased from prior but in the setting of the patient's known malignancy. LFTs otherwise unremarkable. Albumin is normal at 4.3. Lipase is not elevated. TSH within normal limits. CT of the abdomen pelvis was performed and demonstrates the patient's known malignancy with the liver is enlarged with multiple hypodense lesions are dominant in the right hepatic lobe aspect of the right hepatic lobe almost entirely replaced by hypodense area measuring 10 cm. Trace pelvic free fluid is seen. No evidence of obstruction. Patient did receive IV fluid hydration and Zofran in triage and felt improved. Unfortunately her IV had infiltrated and CT and still was to be replaced in order to receive additional hydratio. Given the patient's symptoms in the setting of her malignancy and hypercalcemia she does agree with plan for admission at this time. Case was d/w admitting resident, Dr. Vines and Dr. Bernabe [facility] hospitalist who will evaluate the patient for admission. Triage Nursing notes reviewed and agree them. Prior/outside medical records reviewed Vital Signs: reviewed Differential diagnosis: Gastroenteritis, food borne illness, infections, appendicitis, diverticulitis, inflammatory bowel disease, obstruction, GI bleed, biliary pathology, volvulus, as well as other pathologies. ER treatment provided: See below. Diagnostics interpreted by me: ECG: Sinus tachycardia, 101 bpm, no ectopy, LVH, no overt ST elevation or depression, QTc 425, QRS 84 Cardiac Monitoring: An order for continuous cardiac monitoring was placed and demonstrated Sinus tachycardia, 101 bpm, no ectopy. Laboratory studies: See below Imaging studies: See below Consultation(s): Case was d/w admitting resident, Dr. Vines and Dr. Bernabe [facility] hospitalist who will evaluate the patient for admission. HPI: The patient is a pleasant 87-year-old woman with a past medical history of cholangiocarcinoma where she is scheduled to begin radiation treatment next week who presents to the emergency department via walk-in, accompanied by family for intractable nausea and vomiting with poor oral intake worsening over the past week. The patient reports that she has had minimal oral intake due to her symptoms and has been losing weight. She reports experiencing constipation. She denies any fevers, chills, cough, congestion, chest pain, shortness of breath. ROS: See above HPI for pertinent positives & negatives. A total of 10 systems reviewed and were otherwise negative. VITALS:See Below PHYSICAL EXAMINATION: GENERAL: Awake, alert, fatigued/uncomfortable-appearing, in no distress HENT: Normocephalic, atraumatic. Oropharynx with dry mucous membranes and otherwise unremarkable. EYES: Normal conjunctiva. Sclera non-icteric. NECK: Supple. No nuchal rigidity. FROM. No JVD. RESPIRATORY: Clear to auscultation. CARDIAC: Regular rate, normal rhythm. Extremities warm and well perfused. Pulses equal. ABDOMEN: Upper abdominal fullness with generalized abdominal discomfort without discrete tenderness. No rebound or guarding. RECTAL: Deferred. MUSCULOSKELETAL: Chest examination reveals no tenderness. The back is symmetrical on inspection without obvious abnormality. There is no CVA tenderness to palpation. No joint edema. LOWER EXTREMITIES: Calves are equal size bilaterally and non-tender. No edema. No discoloration. NEURO: Normal sensorium. No sensory or motor deficits noted. SKIN: No rash or jaundice noted. Silver Sanchez MD Past Med/Surg History Medical History Anemia Chronic osteoarthritis Chronic sinusitis Dyslipidemia GERD (gastroesophageal reflux disease) History of SCC (squamous cell carcinoma) of skin HTN (hypertension) Irritable bowel syndrome Meniere disease Non-toxic multinodular goiter Osteoporosis Saccular aneurysm SCC (squamous cell carcinoma) Tubular adenoma of colon Vitamin B12 deficiency Vitamin D deficiency Surgical History H/O sinus surgery x3 H/O: hysterectomy History of back surgery In 2007 Hx of cholecystectomy S/P total knee arthroplasty R knee in Apr 2015, L knee in December 2017 Family History Mother Colorectal cancer Hypertension Father Hypertension Alzheimer disease Denies family history of Ovarian cancer Prostate cancer Myocardial infarction Breast cancer Social History Smoking Status: Never smoker Second Hand Exposure: No; Do You Dip or Chew Tobacco: No; Hx Alcohol Use: No Hx Substance Use: No Preferred Language: Syrian Communication Ability: Effective Visual Impairment: No Limitations Hearing Ability: Hard of Hearing Dental Office Manager Required: No Beliefs That Will Affect Care: None marital status: Current Living Situation: Spouse current occupational status: retired Feels Safe at Home: Yes Childhood Exposure to Second-Hand Smoke: No Diet: low salt and regular Diet Comment: regular/low salt caffeine: Yes during the past year weight has: remained stable Dental Care, Regularly: Yes Physical Activity Frequency: Daily Physical Activity Frequency Comment: housework Seatbelt Use: always Sunscreen Use: Yes Allergies Allergies Allergy/AdvReac Type Severity Reaction Status Date / Time amlodipine [From Norvasc] Allergy Unknown Verified 12/13/22 13:09 codeine Allergy Unknown Verified 12/13/22 13:09 ezetimibe [From Zetia] Allergy Unknown Verified 12/13/22 13:09 hydrochlorothiazide Allergy Unknown Verified 12/13/22 13:09 lansoprazole [From Prevacid] Allergy Unknown Verified 12/13/22 13:09 omeprazole [From Prilosec] Allergy Unknown Verified 12/13/22 13:09 Sulfa (Sulfonamide Allergy Unknown Verified 12/13/22 13:09 Antibiotics) tramadol Allergy Unknown Verified 12/13/22 13:09 potassium chloride AdvReac Severe dyspespia Verified 12/13/22 13:09 [From Klor-Con] NSAIDS (Non-Steroidal AdvReac Mild GI SYMPTOMS Verified 12/13/22 13:09 Anti-Inflamma pantoprazole [From Protonix] AdvReac Mild diarrhea Verified 12/13/22 13:09 Home Meds Home Medications Medication Instructions Recorded Confirmed calcium carbonate 600 mg-vitamin 1 tab PO DAILY 01/04/19 01/29/23 D3 10 mcg (400 unit) tablet (Calcium 600 + D(3)) fluticasone propionate 50 2 sprays intranasal DAILY 01/04/19 01/29/23 mcg/actuation nasal spray,suspension guaifenesin 600 mg tablet, 600 mg PO DAILY 01/04/19 01/29/23 extended release 12 hr (Mucinex) psyllium husk [Fiber-Caps 2 cap PO BID 01/04/19 01/29/23 (psyllium husk)] cyanocobalamin (vitamin B-12) 1,000 mcg sublingual DAILY 06/05/20 01/29/23 1,000 mcg sublingual tablet sucralfate 1 gram tablet (Carafate) 1 g PO .daily 06/15/21 01/29/23 loperamide 2 mg tablet (Imodium 2 mg PO Q4H PRN Diarrhea 07/18/22 01/29/23 A-D) metronidazole See Rx Instructions topical 07/18/22 01/29/23 .COMPLEX PRN Rash lansoprazole 15 mg capsule,delayed 15 mg PO DAILY 12/13/22 01/29/23 release (Prevacid 24Hr) Previous Rx's Medication Instructions Recorded meclizine 25 mg tablet 25 mg PO TID PRN dizziness #90 tabs 03/04/19 colestipol 1 gram tablet 2 g PO BID #60 tabs 06/18/21 spironolactone 25 mg tablet 25 mg PO DAILY #90 tabs 02/25/22 losartan 100 mg tablet 50 mg PO DAILY #45 tabs 03/04/22 atenolol 50 mg tablet See Rx Instructions PO BID #90 tabs 01/13/23 promethazine 25 mg tablet 25 mg PO Q6H PRN nausea and 01/20/23 vomiting #20 tabs Results & Data (ED) Vital Signs Vital Signs - 24 hr 01/29/23 15:49 01/29/23 18:08 Temperature 36.5 C Temperature Source Temporal Artery Scan Pulse Rate 103 H 81 Respiratory Rate 16 18 Respiratory Effort / Characteristics Non-Labored Respiratory Depth Normal Blood Pressure 150/85 H 106/58 L Blood Pressure Mean 106 Pulse Oximetry 99 95 Oxygen Delivery Method Room Air Nasal Cannula Oxygen Flow Rate 2 Sepsis Recent Fever Within 48 Hours No Sepsis New/Unexplained Change in Mental Status No Sepsis Action Taken by Nursing No Action Required Laboratory Data Attestation: I reviewed the patient's lab results. 01/29/23 16:41 01/29/23 16:41 Lab Results 01/29/23 01/29/23 01/29/23 Range/Units 16:41 16:41 16:41 WBC 12.09 H (4.8-10.8) K/ul RBC 4.68 (4.20-5.40) M/uL Hgb 13.0 (12.0-16.0) g/dl Hct 39.6 (37.0-47.0) % MCV 84.6 (80.0-100.0) fL MCH 27.8 (25.0-34.0) pg MCHC 32.8 (32.0-36.0) g/dL RDW Std Deviation 44.9 (36.4-46.3) fL RDW Coeff of [place] 14.6 H (11.5-14.5) % Plt Count 223 (130-400) K/uL MPV 11.3 (9.4-12.4) fL Immature Gran % (Auto) 0.8 % Neut % (Auto) 83.3 % Lymph % (Auto) 8.1 % [place] % (Auto) 6.6 % Eos % (Auto) 0.7 % Baso % (Auto) 0.5 % Neut # (Auto) 10.07 H (1.40-6.50) K/uL Lymph # (Auto) 0.98 L (1.20-3.40) K/uL [place] # (Auto) 0.80 H (0.11-0.59) K/uL Eos # (Auto) 0.08 (0.00-0.50) K/uL Baso # (Auto) 0.06 (0.00-0.20) K/uL Immature Gran # (Auto) 0.10 (0.01-0.20) K/uL Sodium 135 L (136-145) mmol/L Potassium 5.0 (3.5-5.1) mmol/L Chloride 100 (98-107) mmol/L Carbon Dioxide 25 (21-32) mmol/L Anion Gap 10 (3-11) BUN 29 H (6-23) mg/dl Creatinine 0.78 (0.6-1.2) mg/dl Est Cr Clr Drug Dosing Not Reportable Est GFR ( Amer) 80.3 ml/min Est GFR (Non-Af Amer) 69.3 ml/min BUN/Creatinine Ratio 37.2 H (10-20) Glucose 143 H (70-99(Fasting)) mg/dl Calcium 11.7 H (8.6-10.3) mg/dl Magnesium 2.0 (1.7-2.4) mg/dl Total Bilirubin 0.8 (0.2-1.0) mg/dl Direct Bilirubin 0.1 (0-0.2) mg/dl AST 61 H (13-39) U/L ALT 38 (7-52) U/L Alkaline Phosphatase 188 H (34-104) U/L Total Protein 8.6 H (6.0-8.3) gm/dl Albumin 4.3 (3.4-5.0) gm/dl Globulin 4.3 H (2.5-4.0) gm/dl Albumin/Globulin Ratio 1.0 (0.9-2) Lipase 27 (11-82) U/L TSH 1.455 (0.300-4.500) uIu/ml Administered Medications Discontinued Medications Sodium Chloride (Nss) 500 mls @ 999 mls/hr IV .Q31M NELSON Stop: 01/29/23 16:30 Last Infusion: 01/29/23 18:05 Dose: 0 mls/hr Documented By: MMFelicia Admin: 01/29/23 16:42 Dose: 999 mls/hr Documented By: KANUK Ondansetron HCl (Ondansetron Inj 2 Mg/Ml 2 Ml Vial) 4 mg IV NOW STA Stop: 01/29/23 15:52 Last Admin: 01/29/23 16:43 Dose: 4 mg Documented By: Telunjuk Imaging Data Radiologist's Impression: Abdomen/Pelvis CT 01/29/23 15:[address] WITHOUT CONTRAST CT DOSE: 549.30 mGy.cm HISTORY: abd pain. n/v. hx liver CA TECHNIQUE: Multiaxial CT images of the abdomen and pelvis were performed without contrast. A dose lowering technique was utilized adhering to the principles of ALARA. COMPARISON STUDY: Abdomen and pelvis CT 02/28/2019. FINDINGS: Left basilar linear densities favor subsegmental atelectasis or scarring. There is a small calcified pleural plaque at the left lung base. No pneumoperitoneum. No pneumatosis. No suspicious lytic or blastic osseous lesions. L2-S1 posterior decompression and fusion with pedicle screws and rods. Hardware appears intact. L1 vertebroplasty is noted. Bone stimulator leads are seen within the lumbar region. There is a small hiatus hernia. Multiple hypodense lesions are seen scattered throughout the liver. This is most pronounced within the right hepatic lobe. The inferior aspect of the right hepatic lobe is almost entirely replaced by a large hypodense area measuring 10 cm. This likely corresponds to the patient's history of underlying liver malignancy. The liver is enlarged measuring 20 cm in length. Prior cholecystectomy. Suboptimal evaluation of the abdominal structures due to the lack of intravenous contrast in the metallic artifact from the lumbar spine hardware. However, the unenhanced pancreas, spleen, adrenal glands, and kidneys are unremarkable. No hydronephrosis. No retroperitoneal lymphadenopathy. No pelvic lymphadenopathy. Trace pelvic free fluid. The bladder is unremarkable. The uterus is surgically absent. Suboptimal evaluation for bowel pathology due to the lack of intravenous and oral contrast. However, there is no definite bowel wall thickening or obstruction. Majority colon is decompressed. Colonic diverticulosis. No evidence for acute diverticulitis. Prior appendectomy. IMPRESSION: 1. The liver is enlarged and contains multiple hypodense lesions. This is most pronounced within the right hepatic lobe. The inferior aspect of the right hepatic lobe is almost entirely replaced by a large hypodense area measuring 10 cm. This likely corresponds to the patient's history of underlying liver malignancy. 2. No definite bowel wall thickening or obstruction. 3. Trace pelvic free fluid. 4. No hydronephrosis. 5. Colonic diverticulosis. No evidence for acute diverticulitis. 6. Additional findings as described above ACT 112: Negative or not required by law. Electronically signed by: Michael Henning M.D. 01/29/2023 5:32 PM Chest X-Ray 01/29/23 15:51 XR chest 1V portable HISTORY: weakness COMPARISON: Chest CT 08/28/2022. FINDINGS: Small left basilar linear densities consistent with subsegmental atelectasis or scarring. Otherwise, lungs are clear. No pleural effusions. No pneumothorax. The heart is normal in size. L1 vertebroplasty again noted. Lumbar spinal fusion hardware is partially visualized. Bone stimulator leads are noted. IMPRESSION: No acute process. ACT 112: Negative or not required by law. Electronically signed by: Michael Henning M.D. 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, Hypercalcemia, Intractable nausea and vomiting, Dehydration Patient Disposition: Admitted As Inpatient Discharge Instructions Interventions: ED Discharge Assessment Last Done: 01/29/23 18:08 Forms Stand Alone Forms: [facility] [facility] Prescriptions Prescriptions: No Action spironolactone 25 mg tablet 25 mg PO DAILY Qty: 90 3RF atenolol 50 mg tablet See Rx Instructions PO BID Qty: 90 1RF Rx Instructions: Take 1/2 tab PO orally twice a day; promethazine 25 mg tablet 25 mg PO Q6H PRN (Reason: nausea and vomiting) Qty: 20 0RF meclizine 25 mg tablet 25 mg PO TID PRN (Reason: dizziness) Qty: 90 1RF sucralfate [Carafate] 1 gram tablet 1 g PO .daily colestipol 1 gram tablet 2 g PO BID Qty: 60 2RF metronidazole See Rx Instructions topical .COMPLEX PRN (Reason: Rash) Rx Instructions: topically Apply in the AM and in the PM; for rosacea PRN; losartan 100 mg tablet 50 mg PO DAILY Qty: 45 3RF calcium carbonate-vitamin D3 [Calcium 600 + D(3)] 600 mg(1,500mg) -400 unit tablet 1 tab PO DAILY Patient Comments: 1 tab PO Takes 1200mg of calcium and 2400 mg vit d; guaifenesin [Mucinex] 600 mg tablet extended release 12hr 600 mg PO DAILY psyllium husk 2 cap PO BID Patient Comments: PO Take two caps BID; fluticasone propionate 50 mcg/actuation spray,suspension 2 sprays INTNAS DAILY loperamide [Imodium A-D] 2 mg tablet 2 mg PO Q4H PRN (Reason: Diarrhea) cyanocobalamin (vitamin B-12) 1,000 mcg tablet, sublingual 1,000 mcg sublingual DAILY Prevnar 20 (PF) 0.5 mL syringe 0.5 ml IM ONE Qty: 0.5 0RF lansoprazole [Prevacid 24Hr] 15 mg capsule,delayed release(DR/EC) 15 mg PO DAILY Referrals Referrals: Penny Malagon DO [Primary Care Provider] -
[2023-01-29] MEDS ORDERED: MECLIZINE HCL 25 MG TAB PO PRN (19:12)
[2023-01-29] MEDS ORDERED: PROMETHAZINE HCL 25 MG TAB PO PRN (19:12)
--- NOTE | 2023-01-29 19:29 | History & Physical Report ---
Date of Service January 29, 2023 Assessment & Plan (1) Dehydration: Plan: 87 y/o female with a PMHx of adenocarcinoma of the liver, HTN, HLD, GERD, osteoporosis presented with intractable nausea/vomiting and dehydration found to be hypercalcemic and clinically dry admitted for supportive care and fluid resuscitation. #Mild to Moderate Dehydration Patient with dehydration in the setting of nausea and vomiting. Likely related to patient's cancer diagnosis. Patient also with decreased appetite and weight loss. Fluid Resuscitation: 1.5L NS in the ED. Will run IVF @ 1.5x maintenance (160 mL/hr for 2L) #Intractable Nausea/Vomiting Likely in the setting of her cancer diagnosis. Patient on Zofran at home in addition to promethazine. Per palliative note they wanted to start Compazine. Could be a component of reflux as well. Patient on lansoprazole and Carafate at home for this. Will continue Carafate 1 gm QD and pantoprazole. Has famotidine on PRN as well. Antiemetics: QTC 425 on admission EKG First Line: Zofran 4mg Q6H PRN Second Line: Compazine 5 mg Q6H PRN #Hypercalcemia Ca 11.7 on admission. DDx - dehydration, oversupplementation, related to her cancer diagnosis. Would stop calcium supplementation. Hypercalcemia may be contributing to her nausea/vomiting as well. Proceed with fluid resuscitation as above. Monitor electrolytes and intervene as indicated. #Adenocarcinoma of the liver Found on imaging 08/29. Not a surgical candidate. Plan to start liver directed radiation therapy 02/05. Follows with oncology and palliative. #Osteoporosis Patient on Vitamin D and Calcium supplementation in addition to Reclast 5mg injection q12mo. Patient follows with rheumatology. Would recommend stopping calcium supplementation #HTN Patient on atenolol, spironolactone, and losartan at home. Would hold spironolactone and losartan for now. Continue atenolol to avoid beta blockage withdrawal. #GERD as above #Chronic Sinusitis On mucinex and flonase. Continue home meds #IBS Diarrheal Predominance Patient on fiber capsules and Imodium PRN. Can give as indicated. Patient with BM 01/29 prior to admission. Code status: conditional - no defibrillation, no intubation DVT ppx: SCDs, Lovenox SQ QD FENGI: Heart Healthy Dispo: MedSurg with Tele (2) Intractable nausea and vomiting: (3) Hypercalcemia: (4) Adenocarcinoma determined by biopsy of liver: (5) Osteoporosis: (6) HTN (hypertension): (7) GERD (gastroesophageal reflux disease): (8) Chronic sinusitis: (9) Irritable bowel syndrome: History of Present Illness Chief Complaint: nausea/vomiting Primary Care Provider: Penny Malagon DO 87 y/o female with a PMHx of adenocarcinoma of the liver, HTN, HLD, GERD, osteoporosis presented to the ED with several days of nausea/vomiting and poor PO intake. Patient with several days or nausea/vomiting and poor PO intake. She has home antiemetics, but has not been taking them consistently. With the nausea/vomiting, decreased PO intake, and decreased appetite patient presented to the ED for further evaluation. She denies any new abdominal pain, fevers, chills, CP, SOB, leg swelling, or recent falls. Patient without dysuria, but is having decreased urine output. Patient was diagnosed with adenocarcinoma of the liver after abnormal imaging in August of 2022. She is not a surgical candidate. Plan is to start liver directed radiation therapy 02/05/23. Patient follows with oncology and palliative care. Allergies Allergy/AdvReac Type Severity Reaction Status Date / Time amlodipine [From Norvasc] Allergy Unknown Verified 12/13/22 13:09 codeine Allergy Unknown Verified 12/13/22 13:09 ezetimibe [From Zetia] Allergy Unknown Verified 12/13/22 13:09 hydrochlorothiazide Allergy Unknown Verified 12/13/22 13:09 lansoprazole [From Prevacid] Allergy Unknown Verified 12/13/22 13:09 omeprazole [From Prilosec] Allergy Unknown Verified 12/13/22 13:09 Sulfa (Sulfonamide Allergy Unknown Verified 12/13/22 13:09 Antibiotics) tramadol Allergy Unknown Verified 12/13/22 13:09 potassium chloride AdvReac Severe dyspespia Verified 12/13/22 13:09 [From Klor-Con] NSAIDS (Non-Steroidal AdvReac Mild GI SYMPTOMS Verified 12/13/22 13:09 Anti-Inflamma pantoprazole [From Protonix] AdvReac Mild diarrhea Verified 12/13/22 13:09 Home Medications Medication Instructions Recorded Confirmed Type calcium carbonate 600 mg-vitamin 1 tab PO DAILY 01/04/19 01/29/23 History D3 10 mcg (400 unit) tablet (Calcium 600 + D(3)) fluticasone propionate 50 2 sprays intranasal DAILY 01/04/19 01/29/23 History mcg/actuation nasal spray,suspension guaifenesin 600 mg tablet, 600 mg PO DAILY 01/04/19 01/29/23 History extended release 12 hr (Mucinex) psyllium husk [Fiber-Caps 2 cap PO BID 01/04/19 01/29/23 History (psyllium husk)] meclizine 25 mg tablet 25 mg PO TID PRN dizziness #90 tabs 03/04/19 01/29/23 Rx cyanocobalamin (vitamin B-12) 1,000 mcg sublingual DAILY 06/05/20 01/29/23 History 1,000 mcg sublingual tablet sucralfate 1 gram tablet (Carafate) 1 g PO .daily 06/15/21 01/29/23 History colestipol 1 gram tablet 2 g PO BID #60 tabs 06/18/21 01/29/23 Rx spironolactone 25 mg tablet 25 mg PO DAILY #90 tabs 02/25/22 01/29/23 Rx losartan 100 mg tablet 50 mg PO DAILY #45 tabs 03/04/22 01/29/23 Rx loperamide 2 mg tablet (Imodium 2 mg PO Q4H PRN Diarrhea 07/18/22 01/29/23 History A-D) metronidazole See Rx Instructions topical 07/18/22 01/29/23 History .COMPLEX PRN Rash lansoprazole 15 mg capsule,delayed 15 mg PO DAILY 12/13/22 01/29/23 History release (Prevacid 24Hr) atenolol 50 mg tablet See Rx Instructions PO BID #90 tabs 01/13/23 01/29/23 Rx promethazine 25 mg tablet 25 mg PO Q6H PRN nausea and 01/20/23 01/29/23 Rx vomiting #20 tabs zoledronic acid 5 mg/100 mL in 5 IV [id number] 01/29/23 History mannitol 5 %-water intravenous piggybck (Reclast) Past Med/Surg History Medical History Anemia Chronic osteoarthritis Chronic sinusitis Dyslipidemia GERD (gastroesophageal reflux disease) History of SCC (squamous cell carcinoma) of skin HTN (hypertension) Irritable bowel syndrome Meniere disease Non-toxic multinodular goiter Osteoporosis Saccular aneurysm SCC (squamous cell carcinoma) Tubular adenoma of colon Vitamin B12 deficiency Vitamin D deficiency Surgical History H/O sinus surgery x3 H/O: hysterectomy History of back surgery In 2007 Hx of cholecystectomy S/P total knee arthroplasty R knee in Apr 2015, L knee in December 2017 Family History Mother Colorectal cancer Hypertension Father Hypertension Alzheimer disease Denies family history of Ovarian cancer Prostate cancer Myocardial infarction Breast cancer Social History Smoking Status: Never smoker Second Hand Exposure: No; Do You Dip or Chew Tobacco: No; Tobacco Cessation Education Requested by Patient: No Hx Alcohol Use: No Hx Substance Use: No Preferred Language: Thai Communication Ability: Effective Visual Impairment: No Limitations Hearing Ability: Hard of Hearing 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 family nearby current occupational status: retired Other Information That Helps Us Care for You: No Feels Safe at Home: Yes Safety Concerns: Feels Safe At This Time Childhood Exposure to Second-Hand Smoke: No Diet: low salt and regular Diet Comment: regular/low salt caffeine: Yes during the past year weight has: remained stable Dental Care, Regularly: Yes Physical Activity Frequency: Daily Physical Activity Frequency Comment: housework Seatbelt Use: always Sunscreen Use: Yes Assistive Devices: Glasses Review of Systems Review of Systems: See HPI Physical Exam Physical Exam: Gen: dry and tired appearing female in NAD HEENT: AT NC dry mucous membranes Resp: CTAB no wheezing no increased work of breathing CV: RRR no m/r/g 2+ peripheral pulses, no edema, clinically well perfused Abd: soft, non-distended, TTP RUQ otherwise no tenderness, +BS MSK: no obvious deformities Skin: no rashes or bruising noted Psych: appropriate mood and affect Neuro: A&O x3 Results & Data Results & Data Vital Signs (Past 12 Hours) Vital Signs Temp Pulse Resp BP Pulse Ox O2 Del Method O2 Flow Rate 01/29/23 18:08 81 18 106/58 L 95 Nasal Cannula 2 01/29/23 15:49 36.5 C 103 H 16 150/85 H 99 Room Air Laboratory Results 01/29/23 16:41 01/29/23 16:41 Ca 11.7 Diagnostic Findings Abdomen/Pelvis CT 01/29/23 15:[address] WITHOUT CONTRAST CT DOSE: 549.30 mGy.cm HISTORY: abd pain. n/v. hx liver CA TECHNIQUE: Multiaxial CT images of the abdomen and pelvis were performed without contrast. A dose lowering technique was utilized adhering to the principles of ALARA. COMPARISON STUDY: Abdomen and pelvis CT 02/28/2019. FINDINGS: Left basilar linear densities favor subsegmental atelectasis or scarring. There is a small calcified pleural plaque at the left lung base. No pneumoperitoneum. No pneumatosis. No suspicious lytic or blastic osseous le sions. L2-S1 posterior decompression and fusion with pedicle screws and rods. Hardware appears intact. L1 vertebroplasty is noted. Bone stimulator leads are seen within the lumbar region. There is a small hiatus hernia. Multiple hypodense lesions are seen scattered throughout the liver. This is most pronounced within the right hepatic lobe. The inferior aspect of the right hepatic lobe is almost entirely replaced by a large hypodense area measuring 10 cm. This likely corresponds to the patient's history of underlying liver malignancy. The liver is enlarged measuring 20 cm in length. Prior chol ecystectomy. Suboptimal evaluation of the abdominal structures due to the lack of intravenous contrast in the metallic artifact from the lumbar spine hardware. However, the unenhanced pancreas, spleen, adrenal glands, and kidneys are unremarkable. No hydronephrosis. No retroperitoneal lymphadenopathy. No pelvic lymphadenopathy. Trace pelvic free fluid. The bladder is unremarkable. The uterus is surgically absent. Suboptimal evaluation for bowel pathology due to the lack of intravenous and oral contrast. However, there is no definite bowel wall thickening or obstruction. Majority colon is decompressed. Colonic diverticulosis. No evidence for acute diverticulitis. Prior appendectomy. IMPRESSION: 1. The liver is enlarged and contains multiple hypodense lesions. This is most pronounced within the right hepatic lobe. The inferior aspect of the right hepatic lobe is almost entirely replaced by a large hypodense area measuring 10 cm. This likely corresponds to the patient's history of underlying liver malignancy. 2. No definite bowel wall thickening or obstruction. 3. Trace pelvic free fluid. 4. No hydronephrosis. 5. Colonic diverticulosis. No evidence for acute diverticulitis. 6. Additional findings as described above Chest X-Ray 01/29/23 15:51 XR chest 1V portable HISTORY: weakness COMPARISON: Chest CT 08/28/2022. FINDINGS: Small left basilar linear densities consistent with subsegmental atelectasis or scarring. Otherwise, lungs are clear. No pleural effusions. No pneumothorax. The heart is normal in size. L1 vertebroplasty again noted. Lumbar spinal fusion hardware is partially visualized. Bone stimulator leads are noted. IMPRESSION: No acute process. Code Status & VTE Plan VTE Prophylaxis Plan VTE Prophylaxis will be ordered: Yes Supervising Physician Co-Signing Physician Notes I personally saw and examined the patient. I verified all gardner points and agree with Ramses Torres PA-C with the following exceptions and/or additions: 87 year old female with liver cholangiocarcinoma presents to the ER with nausea, vomiting. Progressively getting worse. No abdominal pain, diarrhea, melena or hematochezia. O/E HS RRR, Chest CTAB, Abdo distended but non tender, reflexes 2+ knees equal, Strength 5/5 in all 4 extremities, CN 2-> 12 intact A/P Nausea /vomiting - ?due to cancer vs. hypercalcemia - suspect former. Not using ondansetron frequently at home. Encouraged use of antiemetics. Hold diuretics. Hypercalcemia - ?dehydration and supplementation. Rehydrated overnight HTN - continue atenolol. Will hold spironolactone and losartan Resident Activity Tracking Resident Involvement: Resident Care Provided Care Provided: Adult Hospital Medicine (8) Chronic sinusitis Sinusitis location: unspecified location Qualified Code(s): J32.9 - Chronic sinusitis, unspecified
[2023-01-29] MEDS ORDERED: FAMOTIDINE 20 MG in SYRINGE 3 ML IV PRN (20:45)
[2023-01-29] MEDS ORDERED: Patient's HEIGHT &/or WEIGHT Needed STA (21:08)
[2023-01-29] MEDS ORDERED: COLESTIPOL HCL 1 GM TAB PO STA (21:09)
[2023-01-29] MEDS ORDERED: ACETAMINOPHEN 325 MG TAB PO PRN (21:30)
[2023-01-29] MEDS ORDERED: PROCHLORPERAZINE 5 MG in SYRINGE 4 ML IV PRN (21:30)
[2023-01-29] MEDS: SODIUM CHLORIDE 0.9% 1000ML 1,000 ML IV SCH (22:05)
[2023-01-29] MEDS: ATENOLOL 50 MG TABLET PO SCH (22:11)
[2023-01-29 22:42] LABS: Appearance Urine Clear (Clear); Bilirubin Urine Negative (Negative); Blood Urine Negative (Negative); Color Urine Yellow; Glucose Urine UA Negative (Negative); Ketones Urine Negative (Negative); Leukocyte Esterase Urine Negative (Negative); Nitrite Urine Negative (Negative); Protein Urine Negative (Negative); Urobilinogen Urine Negative (Negative); pH Urine 5.5 (4.5-7.5)
[2023-01-30] MEDS: ONDANSETRON INJ 2 MG/ML 2 ML VIAL IV PRN ×2 (03:19→16:19)
[2023-01-30] MEDS: SODIUM CHLORIDE 0.9% 1000ML 1,000 ML IV SCH (04:55)
[2023-01-30 07:24] LABS: Hematocrit (blood only) 34.4 % (37.0-47.0); Mean Corpuscular Hemoglobin 27.3 pg (25.0-34.0); Mean Corpuscular Volume 85.4 fL (80.0-100.0); Mean Platelet Volume 10.6 fL (9.4-12.4); Platelet Count 180 K/uL (130-400); RDW Coefficient of Variation 14.6 % (11.5-14.5); RDW Standard Deviation 45.2 fL (36.4-46.3); Red Blood Count 4.03 M/uL (4.20-5.40); White Blood Count 11.65 K/ul (4.8-10.8)
--- NOTE | 2023-01-30 07:29 | Hospitalist Progress Note ---
Date of Service January 30, 2023 Assessment & Plan (1) Dehydration: Plan: 87 y/o female with a PMHx of adenocarcinoma of the liver, HTN, HLD, GERD, osteoporosis presented with intractable nausea/vomiting and dehydration found to be hypercalcemic and clinically dry admitted for supportive care and fluid resuscitation. Hypercalcemia -? sec to malignancy. -CA 11.7 on admission 01/30: Ca: 9.7, PTH: 6.0 Vitamin D: 41 -s/p 1.5L NS in the ED. and NS @ 1.5x maintenance (160 mL/hr for 2L) Follow labs am Mild to Moderate Dehydration Patient with dehydration in the setting of nausea and vomiting. Likely related to patient's cancer diagnosis. Patient also with decreased appetite and weight loss. -s/p 1.5L NS in the ED. and NS @ 1.5x maintenance (160 mL/hr for 2L) Hypomagnesium MG 1.6 replaced with 1 g today follow am labs Intractable Nausea/Vomiting - Likely in the setting of her cancer diagnosis. -Denied any nausea today -Carafate 1 gm QD and pantoprazole. Has famotidine on PRN as well. - Antiemetics: QTC 425 on admission EKG First Line: Zofran 4mg Q6H PRN Second Line: Compazine 5 mg Q6H PRN Moderate to severe protein calorie malnutrition -Consult dietary Adenocarcinoma of the liver Found on imaging 08/29. Not a surgical candidate. Plan to start liver directed radiation therapy 02/05. Follows with oncology and palliative. Chronic conditions: #Osteoporosis Patient on Vitamin D and Calcium supplementation in addition to Reclast 5mg inje ction q12mo. Patient follows with rheumatology. Would recommend stopping calcium supplementation #HTN Patient on atenolol, spironolactone, and losartan at home. hold spironolactone and losartan for now due to hypotension. Continue atenolol to avoid beta blockage withdrawal. #GERD as above #Chronic Sinusitis On mucinex and flonase. Continue home meds #IBS Diarrheal Predominance Patient on fiber capsules and Imodium PRN. Can give as indicated. Patient with BM 01/29 prior to admission. Dispo: MedSurg with Tele Code status: conditional - no defibrillation, no intubation DVT ppx: SCDs, Lovenox SQ QD FENGI: Heart Healthy (2) Intractable nausea and vomiting: (3) Hypercalcemia: (4) Adenocarcinoma determined by biopsy of liver: (5) Osteoporosis: (6) HTN (hypertension): (7) GERD (gastroesophageal reflux disease): (8) Chronic sinusitis: (9) Irritable bowel syndrome: Admission and Anticipated Discharge Date Admission Date: January 29, 2023 Supervising Physician Co-Signing Physician Notes Resident Physician Supervision Note: I independently interviewed and examined the patient and verified the gardner history and physical, reviewed labs and image studies and agree with resident findings and care plan. Subjective 87 y/o female with a PMHx of adenocarcinoma of the liver, HTN, HLD, GERD, osteoporosis presented to the ED with several days of nausea/vomiting and poor PO intake. Patient with several days or nausea/vomiting and poor PO intake. She has home antiemetics, but has not been taking them consistently. With the nausea/vomiting, decreased PO intake, and decreased appetite patient presented to the ED for further evaluation. Patient was diagnosed with adenocarcinoma of the liver after abnormal imaging in August of 2022. She is not a surgical candidate. Plan is to start liver directed radiation therapy 02/05/23. Patient follows with oncology and palliative care. Today was found AAOx3. With no complains. Refers feeling better. She denies any new abdominal pain, fevers, chills, CP, SOB, leg swelling, or recent falls. Patient without dysuria, but is having decreased urine output. Review of Systems Review of Systems: As per HPI Physical Exam Constitutional: WD/WN, vitals as above Eyes: PERRL, conjunctivae normal, anicteric sclerae Respiratory: normal respiratory effort, lungs clear to auscultation Cardiovascular: RRR, no murmur, no edema Gastrointestinal (Abdomen): normal bowel sounds, soft, nontender, no hepatosplenomegaly Musculoskeletal: no cyanosis or clubbing, extremities motor strength 5/5 Skin: no rashes, warm and dry Results & Data Results & Data Vital Signs (Past 12 Hours) Vital Signs Temp Pulse Pulse Pulse Resp BP BP 01/30/23 07:26 71 01/30/23 04:36 82 01/30/23 03:27 01/30/23 03:27 36.9 C 83 18 01/30/23 02:25 71 22 139/79 01/30/23 00:56 74 24 152/64 H 01/29/23 23:17 73 01/29/23 22:13 98 H 21 152/64 H 01/29/23 20:03 84 01/29/23 21:11 88 23 134/79 BP Pulse Ox O2 Del Method O2 Flow Rate 01/30/23 07:26 01/30/23 04:36 01/30/23 03:27 Room Air 01/30/23 03:27 144/85 H 99 Room Air 01/30/23 02:25 98 Nasal Cannula 2 01/30/23 00:56 99 Nasal Cannula 1 01/29/23 23:17 01/29/23 22:13 97 Room Air 01/29/23 20:03 01/29/23 21:11 98 Room Air Resident Activity Tracking Resident Involvement: Resident Care Provided Care Provided: Adult Hospital Medicine (8) Chronic sinusitis Sinusitis location: unspecified location Qualified Code(s): J32.9 - Chronic sinusitis, unspecified
--- NOTE | 2023-01-30 07:54 | Billing Data ---
Date of Service January 29, 2023 Coding Level of Care Code 30424 INT INP/OBS CARE
[2023-01-30 07:56] LABS: Albumin Globulin Ratio 1.1 (0.9-2); Albumin Level 3.3 gm/dl (3.4-5.0); BUN Creatinine Ratio 31.7 (10-20); Bilirubin,Total 0.8 mg/dl (0.2-1.0); Calcium 9.7 mg/dl (8.6-10.3); Creatinine Clr Calc Pharmacy 49.2 ml/min; Est GFR (African American) 96.3 ml/min; Est GFR (Non-African American) 83.1 ml/min; Magnesium 1.6 mg/dl (1.7-2.4); Phosphorus 2.5 mg/dl (2.5-4.9); Potassium 4.7 mmol/L (3.5-5.1); Total Protein 6.3 gm/dl (6.0-8.3)
[2023-01-30] MEDS ORDERED: MAGNESIUM SULFATE / D5W 1 GM/100 ML BAG IV ONE (08:17)
[2023-01-30] MEDS: PANTOprazole 40 MG TAB PO SCH (08:26)
[2023-01-30] MEDS: SUCRALFATE 1 GM TAB PO SCH (08:27)
[2023-01-30] MEDS: guaiFENesin 600 MG TABCR PO SCH (08:27)
[2023-01-30] MEDS: ENOXAPARIN INJ 40 MG/0.4 ML SYR SQ SCH (08:27)
[2023-01-30] MEDS: FLUTICASONE PROPIONATE NA SPR 16 GM BTL SCH (08:28)
[2023-01-30] MEDS ORDERED: FAMOTIDINE 20 MG in SYRINGE 3 ML IV SCH (09:00)
[2023-01-30] MEDS ORDERED: PANTOprazole 40 MG TAB PO SCH (09:00)
[2023-01-30] MEDS: ATENOLOL 50 MG TABLET PO SCH ×2 (10:20→20:06)
[2023-01-30] MEDS: COLESTIPOL HCL 1 GM TAB PO SCH ×2 (12:12→21:40)
--- NOTE | 2023-01-30 16:43 | Electrocardiogram Report ---
Test Reason : Blood Pressure : / mmHG Vent. Rate : 101 BPM Atrial Rate : 101 BPM P-R Int : 142 ms QRS Dur : 084 ms QT Int : 328 ms P-R-T Axes : 019 -03 025 degrees QTc Int : 425 ms Sinus tachycardia Left ventricular hypertrophy Possible Old Inferior infarct Possible Old Anterior infarct Abnormal ECG When compared with ECG of 28-FEB-2019 15:10, Vent. rate has increased BY 36 BPM Borderline Criteria for Anterior infarct is now Present Borderline Criteria for Inferior infarct is now Present Confirmed by Thomas Nunez ([id number]) on 01/30/2023 4:42:40 PM Referred By: REFERRED SELF Confirmed By:Thomas Nunez
[2023-01-31] MEDS ORDERED: POLYETHYLENE (MIRALAX) 17 GM PACK PO PRN (05:59)
[2023-01-31 06:24] LABS: Hematocrit (blood only) 31.7 % (37.0-47.0); Hemoglobin 10.1 g/dl (12.0-16.0); Mean Corpuscular Hgb Conc 31.9 g/dL (32.0-36.0); Mean Corpuscular Volume 84.8 fL (80.0-100.0); Mean Platelet Volume 11.3 fL (9.4-12.4); Platelet Count 152 K/uL (130-400); RDW Coefficient of Variation 14.3 % (11.5-14.5); RDW Standard Deviation 44.2 fL (36.4-46.3); Red Blood Count 3.74 M/uL (4.20-5.40); White Blood Count 10.08 K/ul (4.8-10.8)
[2023-01-31 06:40] LABS: Albumin Level 3.1 gm/dl (3.4-5.0); Bilirubin,Total 0.7 mg/dl (0.2-1.0); Calcium 9.5 mg/dl (8.6-10.3); Creatinine Clr Calc Pharmacy 47.7 ml/min; Est GFR (African American) 95.3 ml/min; Est GFR (Non-African American) 82.2 ml/min; Magnesium 1.6 mg/dl (1.7-2.4); Phosphorus 1.8 mg/dl (2.5-4.9); Potassium 4.5 mmol/L (3.5-5.1); Total Protein 6.1 gm/dl (6.0-8.3)
--- NOTE | 2023-01-31 07:14 | Hospitalist Progress Note ---
Date of Service January 31, 2023 Assessment & Plan (1) Dehydration: Plan: 87 y/o female with a PMHx of adenocarcinoma of the liver, HTN, HLD, GERD, osteoporosis presented with intractable nausea/vomiting and dehydration found to be hypercalcemic and clinically dry admitted for supportive care and fluid resuscitation. Hypercalcemia -? sec to malignancy. -CA 11.7 on admission 01/30: Ca: 9.7, PTH: 6.0 Vitamin D: 41 -s/p 1.5L NS in the ED. and NS @ 1.5x maintenance (160 mL/hr for 2L) - Calcium am: 9.5 Follow labs am Mild to Moderate Dehydration Patient with dehydration in the setting of nausea and vomiting. Likely related to patient's cancer diagnosis. Patient also with decreased appetite and weight loss. Appetite improving. -s/p 1.5L NS in the ED. and NS @ 1.5x maintenance (160 mL/hr for 2L) -Case management: Patient can return home upon discharge Hypomagnesium MG 1.6 s/ Magnesium 1 g - Will replace Magenisum/Dxt 2 grams -follow am labs Intractable Nausea/Vomiting - Likely in the setting of her cancer diagnosis. -Denied any nausea today -Carafate 1 gm QD and pantoprazole. Has famotidine on PRN as well. - Antiemetics: QTC 425 on admission EKG First Line: Zofran 4mg Q6H PRN Second Line: Compazine 5 mg Q6H PRN Moderate to severe protein calorie malnutrition -Consult dietary Adenocarcinoma of the liver Found on imaging 08/29. Not a surgical candidate. Plan to start liver directed radiation therapy 02/05. Follows with oncology and palliative. Chronic conditions: #Osteoporosis Patient on Vitamin D and Calcium supplementation in addition to Reclast 5mg injection q12mo. Patient follows with rheumatology. Would recommend stopping calcium supplementation #HTN Patient on atenolol, spironolactone, and losartan at home. hold spironolactone and losartan for now due to hypotension. Continue atenolol to avoid beta blockage withdrawal. #GERD as above #Chronic Sinusitis On mucinex and flonase. Continue home meds #IBS Diarrheal Predominance Patient on fiber capsules and Imodium PRN. Can give as indicated. Patient with BM 01/29 prior to admission. Dispo: MedSurg with Tele Code status: conditional - no defibrillation, no intubation DVT ppx: SCDs, Lovenox SQ QD FENGI: Heart Healthy (2) Intractable nausea and vomiting: (3) Hypercalcemia: (4) Adenocarcinoma determined by biopsy of liver: (5) Osteoporosis: (6) HTN (hypertension): (7) GERD (gastroesophageal reflux disease): (8) Chronic sinusitis: (9) Irritable bowel syndrome: Admission and Anticipated Discharge Date Admission Date: January 29, 2023 Subjective 87 y/o female with a PMHx of adenocarcinoma of the liver, HTN, HLD, GERD, osteoporosis presented to the ED with several days of nausea/vomiting and poor PO intake. Patient with several days or nausea/vomiting and poor PO intake. She has home antiemetics, but has not been taking them consistently. With the nausea/vomiting, decreased PO intake, and decreased appetite patient presented to the ED for further evaluation. Patient was diagnosed with adenocarcinoma of the liver after abnormal imaging in August of 2022. She is not a surgical candidate. Plan is to start liver directed radiation therapy 02/05/23. Patient follows with oncology and palliative care. 01/31 Today was found AAOx3. With no complains. Refers feeling better. She denies any new abdominal pain, fevers, chills, CP, SOB, leg swelling, or recent falls. She refers her appetite is improving. Complained of constipations during the night, Miralax was given Review of Systems Review of Systems: As per HPI Physical Exam Constitutional: WD/WN, vitals as above Eyes: PERRL, conjunctivae normal, anicteric sclerae Respiratory: normal respiratory effort, lungs clear to auscultation Cardiovascular: RRR, no murmur, no edema Gastrointestinal (Abdomen): normal bowel sounds, soft, nontender, no hepatosplenomegaly Musculoskeletal: no cyanosis or clubbing, extremities motor strength 5/5 Skin: no rashes, warm and dry Results & Data Results & Data Vital Signs (Past 12 Hours) Vital Signs Temp Pulse Pulse Resp BP BP Pulse Ox 01/31/23 03:21 36.7 C 70 18 146/78 H 97 01/31/23 02:52 70 01/30/23 21:59 36.9 C 68 16 130/77 97 01/30/23 19:46 37.0 C 76 18 130/75 97 O2 Del Method 01/31/23 03:21 Room Air 08/25/23 02:52 01/30/23 21:59 Room Air 01/30/23 19:46 Room Air (8) Chronic sinusitis Sinusitis location: unspecified location Qualified Code(s): J32.9 - Chronic sinusitis, unspecified
[2023-01-31] MEDS: MAGNESIUM SULFATE / D5W 1 GM/100 ML BAG IV SCH ×2 (07:27→09:23)
[2023-01-31] MEDS: ATENOLOL 50 MG TABLET PO SCH (09:24)
[2023-01-31] MEDS: COLESTIPOL HCL 1 GM TAB PO SCH (09:24)
[2023-01-31] MEDS: SUCRALFATE 1 GM TAB PO SCH (09:25)
[2023-01-31] MEDS: guaiFENesin 600 MG TABCR PO SCH (09:25)
[2023-01-31] MEDS: ENOXAPARIN INJ 40 MG/0.4 ML SYR SQ SCH (09:25)
[2023-01-31] MEDS: PANTOprazole 40 MG TAB PO SCH ×2 (09:25→10:24)
[2023-01-31] MEDS: FLUTICASONE PROPIONATE NA SPR 16 GM BTL SCH (09:26)
[2023-01-31] MEDS: ONDANSETRON INJ 2 MG/ML 2 ML VIAL IV PRN (10:23)
[2023-01-31 13:23] LABS: BUN Creatinine Ratio 24.6 (10-20); Calcium 9.8 mg/dl (8.6-10.3); Creatinine Clr Calc Pharmacy 45.5 ml/min; Est GFR (African American) 93.8 ml/min; Potassium 4.2 mmol/L (3.5-5.1)
--- NOTE | 2023-01-31 13:50 | Discharge Summary ---
Date of Service January 31, 2023 Admission HPI Per Admitting Provider 87 y/o female with a PMHx of adenocarcinoma of the liver, HTN, HLD, GERD, osteoporosis presented to the ED with several days of nausea/vomiting and poor PO intake. Patient with several days or nausea/vomiting and poor PO intake. She has home antiemetics, but has not been taking them consistently. With the nausea/vomiting, decreased PO intake, and decreased appetite patient presented to the ED for further evaluation. She denies any new abdominal pain, fevers, chills, CP, SOB, leg swelling, or recent falls. Patient without dysuria, but is having decreased urine output. Patient was diagnosed with adenocarcinoma of the liver after abnormal imaging in August of 2022. She is not a surgical candidate. Plan is to start liver directed radiation therapy 02/05/23. Patient follows with oncology and palliative care. 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 Discharge Exam Constitutional WD/WN, vitals as above Eyes PERRL, conjunctivae normal, anicteric sclerae ENMT external ear and nose normal, oropharynx normal Respiratory normal respiratory effort, lungs clear to auscultation Cardiovascular RRR, no murmur, no edema Gastrointestinal (Abdomen) normal bowel sounds, soft, nontender, no hepatosplenomegaly Musculoskeletal no cyanosis or clubbing, extremities motor strength 5/5 Skin no rashes, warm and dry Neurologic PERRL, EOMI, accommodation nl, no face palsy, no dysarthria Discharge Data Allergies Allergy/AdvReac Type Severity Reaction Status Date / Time amlodipine [From Norvasc] Allergy Unknown Verified 12/13/22 13:09 codeine Allergy Unknown Verified 12/13/22 13:09 ezetimibe [From Zetia] Allergy Unknown Verified 12/13/22 13:09 hydrochlorothiazide Allergy Unknown Verified 12/13/22 13:09 lansoprazole [From Prevacid] Allergy Unknown Verified 12/13/22 13:09 omeprazole [From Prilosec] Allergy Unknown Verified 12/13/22 13:09 Sulfa (Sulfonamide Allergy Unknown Verified 12/13/22 13:09 Antibiotics) tramadol Allergy Unknown Verified 12/13/22 13:09 potassium chloride AdvReac Severe dyspespia Verified 12/13/22 13:09 [From Klor-Con] NSAIDS (Non-Steroidal AdvReac Mild GI SYMPTOMS Verified 12/13/22 13:09 Anti-Inflamma pantoprazole [From Protonix] AdvReac Mild diarrhea Verified 12/13/22 13:09 Ordered Studies Labs 01/29/23 01/29/23 01/29/23 16:41 16:41 16:41 WBC 12.09 H RBC 4.68 Hgb 13.0 Hct 39.6 MCV 84.6 MCH 27.8 MCHC 32.8 RDW Std Deviation 44.9 RDW Coeff of [place] 14.6 H Plt Count 223 MPV 11.3 Immature Gran % (Auto) 0.8 Neut % (Auto) 83.3 Lymph % (Auto) 8.1 [place] % (Auto) 6.6 Eos % (Auto) 0.7 Baso % (Auto) 0.5 Neut # (Auto) 10.07 H Lymph # (Auto) 0.98 L [place] # (Auto) 0.80 H Eos # (Auto) 0.08 Baso # (Auto) 0.06 Immature Gran # (Auto) 0.10 Sodium 135 L Potassium 5.0 Chloride 100 Carbon Dioxide 25 Anion Gap 10 BUN 29 H Creatinine 0.78 Est Cr Clr Drug Dosing Not Reportable Est GFR ( Amer) 80.3 Est GFR (Non-Af Amer) 69.3 BUN/Creatinine Ratio 37.2 H Glucose 143 H Calcium 11.7 H Ionized Calcium Phosphorus Magnesium 2.0 Total Bilirubin 0.8 Direct Bilirubin 0.1 AST 61 H ALT 38 Alkaline Phosphatase 188 H Total Protein 8.6 H Albumin 4.3 Globulin 4.3 H Albumin/Globulin Ratio 1.0 Lipase 27 25-OH Vitamin D Total TSH 1.455 PTH Intact Urine Color Urine Appearance Urine pH Ur Specific [place] Urine Protein Urine Glucose (UA) Urine Ketones Urine Blood Urine Nitrite Urine Bilirubin Urine Urobilinogen Ur Leukocyte Esterase 01/29/23 01/29/23 01/30/23 19:05 Unknown 07:09 WBC 11.65 H RBC 4.03 L Hgb 11.0 L Hct 34.4 L MCV 85.4 MCH 27.3 MCHC 32.0 RDW Std Deviation 45.2 RDW Coeff of [place] 14.6 H Plt Count 180 MPV 10.6 Immature Gran % (Auto) Neut % (Auto) Lymph % (Auto) [place] % (Auto) Eos % (Auto) Baso % (Auto) Neut # (Auto) Lymph # (Auto) [place] # (Auto) Eos # (Auto) Baso # (Auto) Immature Gran # (Auto) Sodium Potassium Chloride Carbon Dioxide Anion Gap BUN Creatinine Est Cr Clr Drug Dosing Est GFR ( Amer) Est GFR (Non-Af Amer) BUN/Creatinine Ratio Glucose Calcium Ionized Calcium 1.40 H Phosphorus Magnesium Total Bilirubin Direct Bilirubin AST ALT Alkaline Phosphatase Total Protein Albumin Globulin Albumin/Globulin Ratio Lipase 25-OH Vitamin D Total TSH PTH Intact Urine Color Yellow Urine Appearance Clear Urine pH 5.5 Ur Specific [place] 1.020 Urine Protein Negative Urine Glucose (UA) Negative Urine Ketones Negative Urine Blood Negative Urine Nitrite Negative Urine Bilirubin Negative Urine Urobilinogen Negative Ur Leukocyte Esterase Negative 01/30/23 01/30/23 01/30/23 07:09 07:33 07:33 WBC RBC Hgb Hct MCV MCH MCHC RDW Std Deviation RDW Coeff of [place] Plt Count MPV Immature Gran % (Auto) Neut % (Auto) Lymph % (Auto) [place] % (Auto) Eos % (Auto) Baso % (Auto) Neut # (Auto) Lymph # (Auto) [place] # (Auto) Eos # (Auto) Baso # (Auto) Immature Gran # (Auto) Sodium 135 L Potassium 4.7 Chloride 108 H Carbon Dioxide 24 Anion Gap 3 BUN 19 Creatinine 0.60 Est Cr Clr Drug Dosing 49.2 Est GFR ( Amer) 96.3 Est GFR (Non-Af Amer) 83.1 BUN/Creatinine Ratio 31.7 H Glucose 88 Calcium 9.7 D Ionized Calcium Phosphorus 2.5 Magnesium 1.6 L Total Bilirubin 0.8 Direct Bilirubin AST 49 H ALT 28 Alkaline Phosphatase 145 H Total Protein 6.3 D Albumin 3.3 L Globulin 3.0 Albumin/Globulin Ratio 1.1 Lipase 25-OH Vitamin D Total 41.0 TSH PTH Intact 6.0 L Urine Color Urine Appearance Urine pH Ur Specific [place] Urine Protein Urine Glucose (UA) Urine Ketones Urine Blood Urine Nitrite Urine Bilirubin Urine Urobilinogen Ur Leukocyte Esterase 01/31/23 01/31/23 01/31/23 05:48 05:48 12:33 WBC 10.08 RBC 3.74 L Hgb 10.1 L Hct 31.7 L MCV 84.8 MCH 27.0 MCHC 31.9 L RDW Std Deviation 44.2 RDW Coeff of [place] 14.3 Plt Count 152 MPV 11.3 Immature Gran % (Auto) Neut % (Auto) Lymph % (Auto) [place] % (Auto) Eos % (Auto) Baso % (Auto) Neut # (Auto) Lymph # (Auto) [place] # (Auto) Eos # (Auto) Baso # (Auto) Immature Gran # (Auto) Sodium 131 L Potassium 4.5 Chloride 104 Carbon Dioxide 22 Anion Gap 5 BUN 18 Creatinine 0.62 Est Cr Clr Drug Dosing 47.7 Est GFR ( Amer) 95.3 Est GFR (Non-Af Amer) 82.2 BUN/Creatinine Ratio 29.0 H Glucose 99 Calcium 9.5 Ionized Calcium Phosphorus 1.8 L Magnesium 1.6 L 2.1 Total Bilirubin 0.7 Direct Bilirubin AST 46 H ALT 26 Alkaline Phosphatase 137 H Total Protein 6.1 Albumin 3.1 L Globulin 3.0 Albumin/Globulin Ratio 1.0 Lipase 25-OH Vitamin D Total TSH PTH Intact Urine Color Urine Appearance Urine pH Ur Specific [place] Urine Protein Urine Glucose (UA) Urine Ketones Urine Blood Urine Nitrite Urine Bilirubin Urine Urobilinogen Ur Leukocyte Esterase 01/31/23 12:33 WBC RBC Hgb Hct MCV MCH MCHC RDW Std Deviation RDW Coeff of [place] Plt Count MPV Immature Gran % (Auto) Neut % (Auto) Lymph % (Auto) [place] % (Auto) Eos % (Auto) Baso % (Auto) Neut # (Auto) Lymph # (Auto) [place] # (Auto) Eos # (Auto) Baso # (Auto) Immature Gran # (Auto) Sodium 130 L Potassium 4.2 Chloride 101 Carbon Dioxide 25 Anion Gap 4 BUN 16 Creatinine 0.65 Est Cr Clr Drug Dosing 45.5 Est GFR ( Amer) 93.8 Est GFR (Non-Af Amer) 81.0 BUN/Creatinine Ratio 24.6 H Glucose 93 Calcium 9.8 Ionized Calcium Phosphorus Magnesium Total Bilirubin Direct Bilirubin AST ALT Alkaline Phosphatase Total Protein Albumin Globulin Albumin/Globulin Ratio Lipase 25-OH Vitamin D Total TSH PTH Intact Urine Color Urine Appearance Urine pH Ur Specific [place] Urine Protein Urine Glucose (UA) Urine Ketones Urine Blood Urine Nitrite Urine Bilirubin Urine Urobilinogen Ur Leukocyte Esterase Abdomen/Pelvis CT 01/29/23 15:[address] WITHOUT CONTRAST CT DOSE: 549.30 mGy.cm HISTORY: abd pain. n/v. hx liver CA TECHNIQUE: Multiaxial CT images of the abdomen and pelvis were performed without contrast. A dose lowering technique was utilized adhering to the principles of ALARA. COMPARISON STUDY: Abdomen and pelvis CT 02/28/2019. FINDINGS: Left basilar linear densities favor subsegmental atelectasis or scarring. There is a small calcified pleural plaque at the left lung base. No pneumoperitoneum. No pneumatosis. No suspicious lytic or blastic osseous lesions. L2-S1 posterior decompression and fusion with pedicle screws and rods. Hardware appears intact. L1 vertebroplasty is noted. Bone stimulator leads are seen within the lumbar region. There is a small hiatus hernia. Multiple hypodense lesions are seen scattered throughout the liver. This is most pronounced within the right hepatic lobe. The inferior aspect of the right hepatic lobe is almost entirely replaced by a large hypodense area measuring 10 cm. This likely corresponds to the patient's history of underlying liver malignancy. The liver is enlarged measuring 20 cm in length. Prior cholecystectomy. Suboptimal evaluation of the abdominal structures due to the lack of intravenous contrast in the metallic artifact from the lumbar spine hardware. However, the unenhanced pancreas, spleen, adrenal glands, and kidneys are unremarkable. No hydronephrosis. No retroperitoneal lymphadenopathy. No pelvic lymphadenopathy. Trace pelvic free fluid. The bladder is unremarkable. The uterus is surgically absent. Suboptimal evaluation for bowel pathology due to the lack of intravenous and oral contrast. However, there is no definite bowel wall thickening or obstruction. Majority colon is decompressed. Colonic diverticulosis. No evidence for acute diverticulitis. Prior appendectomy. IMPRESSION: 1. The liver is enlarged and contains multiple hypodense lesions. This is most pronounced within the right hepatic lobe. The inferior aspect of the right hepatic lobe is almost entirely replaced by a large hypodense area measuring 10 cm. This likely corresponds to the patient's history of underlying liver malignancy. 2. No definite bowel wall thickening or obstruction. 3. Trace pelvic free fluid. 4. No hydronephrosis. 5. Colonic diverticulosis. No evidence for acute diverticulitis. 6. Additional findings as described above ACT 112: Negative or not required by law. Electronically signed by: Michael Henning M.D. 01/29/2023 5:32 PM Chest X-Ray 01/29/23 15:51 XR chest 1V portable HISTORY: weakness COMPARISON: Chest CT 08/28/2022. FINDINGS: Small left basilar linear densities consistent with subsegmental atelectasis or scarring. Otherwise, lungs are clear. No pleural effusions. No pneumothorax. The heart is normal in size. L1 vertebroplasty again noted. Lumbar spinal fusion hardware is partially visualized. Bone stimulator leads are noted. IMPRESSION: No acute process. ACT 112: Negative or not required by law. Electronically signed by: Michael Henning M.D. 01/29/2023 6:21 PM 01/29/23 15:51 CT abd pelvis wo con Stat Hospital Course (1) Hypercalcemia: (2) Adenocarcinoma determined by biopsy of liver: (3) Intractable nausea and vomiting: (4) Dehydration: Plan 87 y/o female with a PMHx of adenocarcinoma of the liver, HTN, HLD, GERD, osteoporosis presented with intractable nausea/vomiting and dehydration found to be hypercalcemic and clinically dry admitted for supportive care and fluid resuscitation. Patient was hydrated with NSS. Calcium on admission was 11.7. After IV fluids: calcium decreased to 9.7, PTH : 6.0 and Vitamin D was 41. Patient found to have a hyponatremia of 135, seen to be chronic. Losartan and Spironolactone were held during admission due to hypotension. To resume losartan on discharge. Patient was discharge today with instructions of -holding Spironolactone until PCP visit and reassessment of BMP and/or if BP goes higher at home -Re-start Losartan -Limit water intake to 1500 ml to prevent worsening of hyponatremia -Re check bmp on Friday - Close follow up with PCP Adenocarcinoma of the liver Found on imaging 08/29. Not a surgical candidate. Plan to start liver directed radiation therapy 02/05. Follows with oncology and palliative. 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 You were found to have dehydration and hypercalcemia (high Calcium ) in your blood. After IV hydration your electrolytes came back to normal, and the calcium went down to normal levels. Additional you were found to have hyponatremia (low sodium level) which seem to be chronic. It is important to follow with your PCP within a week to recheck your BMP (lab work up), as well limit water intake to 1500 ml. During your admission, Spironolactone 25 and Losartan 100 were hold (medications for high blood pressure). You can re-start Losartan as prescribe but you will hold Spironolactone until your visit with your PCP within a week and recheck your BMP (lab work up) on Friday. Spironolactone is a diuretic that can worsening your symptoms of dehydration. If yoor blood pressure is high, you can re-take Spironolactone until re- assessment with your PCP. Continue these medications: Losartan 50 mg daily Atenolol 25 mg twice a day Fluticasone nasal spray Vitamin B12 Lansoprazole 15 mg daily Meclizine 25 mg po three times a day Hold these medications until visit with PCP Spironolactone 25 mg daily if you blood pressure start to go up you may re-start again For your PCP visit -Re-check BMP Limit water intake to 1500ml (6 cups) daily Pending Studies at Discharge: No Stand-Alone Forms: My [employer], Smoking Cessation Medications and DC Order Prescriptions: Continued atenolol 50 mg tablet See Rx Instructions PO BID Qty: 90 1RF Rx Instructions: Take 1/2 tab PO orally twice a day; promethazine 25 mg tablet 25 mg PO Q6H PRN (Reason: nausea and vomiting) Qty: 20 0RF meclizine 25 mg tablet 25 mg PO TID PRN (Reason: dizziness) Qty: 90 1RF sucralfate [Carafate] 1 gram tablet 1 g PO .daily colestipol 1 gram tablet 2 g PO BID Qty: 60 2RF metronidazole See Rx Instructions topical .COMPLEX PRN (Reason: Rash) Rx Instructions: topically Apply in the AM and in the PM; for rosacea PRN; losartan 100 mg tablet 50 mg PO DAILY Qty: 45 3RF calcium carbonate-vitamin D3 [Calcium 600 + D(3)] 600 mg(1,500mg) -400 unit tablet 1 tab PO DAILY Patient Comments: 1 tab PO Takes 1200mg of calcium and 2400 mg vit d; guaifenesin [Mucinex] 600 mg tablet extended release 12hr 600 mg PO DAILY psyllium husk 2 cap PO BID Patient Comments: PO Take two caps BID; fluticasone propionate 50 mcg/actuation spray,suspension 2 sprays INTNAS DAILY loperamide [Imodium A-D] 2 mg tablet 2 mg PO Q4H PRN (Reason: Diarrhea) cyanocobalamin (vitamin B-12) 1,000 mcg tablet, sublingual 1,000 mcg sublingual DAILY Prevnar 20 (PF) 0.5 mL syringe 0.5 ml IM ONE Qty: 0.5 0RF lansoprazole [Prevacid 24Hr] 15 mg capsule,delayed release(DR/EC) 15 mg PO DAILY zoledronic [id number] [Reclast] 5 mg/100 mL Piggyback 5 IV [id number] Discontinued spironolactone 25 mg tablet 25 mg PO DAILY Qty: 90 3RF Discharge Orders: Discharge Order (Routine); Ordered 01/31/23 Ordered By: Radha Vasquez Jonathan Admission Data Admit Date/Time: 01/29/23 19:00 Attending Provider: Kary Nuñez Admit Provider: Jeana Vines Primary Care Provider: Penny Malagon Other Providers: Dilan Bernabe Other Interventions: Discharge Summary Assessment (RN) Last Done: 01/31/23 14:36 Supervising Physician Co-Signing Physician Notes Resident Physician Supervision Note: I independently interviewed and examined the patient and verified the gardner history and physical, reviewed labs and image studies and agree with resident findings and care plan. Resident Activity Tracking Resident Involvement: Resident Care Provided Care Provided: Adult [facility]
== END 2023-01-31 15:10 | disposition home or self-care (01) | DRG 640 ==
LOC: ED 15:46 → SUATTDRO 19:00 → EDINP 19:00 → 2N 01-30 02:25